=== PATIENT | female | born 1940 | race Caucasian/White ===

== ENCOUNTER → 2017-02-26 | Outpatient (CLI) | payer MEDICARE ==
[~2017-02-26] MED LIST: /PHEN9TA OR; /WARF25TA; /WARF25TA PO; ACET65TA; ALEV220C2 PO; AMLO10TA2 PO; ANEX7.5T PO; ASPI325T OR; BENI20TA11; CALCCHW12; DILA100C OR; DULC100C PO; LISI20TA5 OR; OMEP20TA7 OR; PERC5TAB8; PERC5TAB8 OR; PHEN100C; PHEN10TA; PHEN60TA; PHEN64.8 OR; TYLE325T5 PO; VIT D 2000 OR
--- NOTE | 2017-02-26 13:20 | PFTRPT ---
Site: [facility], [address] [place], [address] ID: [id number] Name: FABIAN PAGE Doctor: Dave BENSON, Celine Tech: Sammy BOWEN RRT Age: 76 Sex: Female Race: Height: 62.00 Inches Weight: 169.00 Lbs BSA: 1.78 Diagnosis: M34.1 test meet the ATS standards for acceptability and repeatability. Pre-Bronch Post-Bronch Pred Actual %Pred Actual %Chng SPIROMETRY FVC (L) 2.57 2.73 106 FEV1 (L) 1.92 2.00 104 FEV1/FVC (%) 75 73 97 FEF 25% (L/sec) 4.41 4.36 98 FEF 50% (L/sec) 3.20 1.87 58 FEF 75% (L/sec) 0.87 0.53 60 FEF 25-75% (L/sec) 1.55 1.45 93 FEF Max (L/sec) 4.95 4.49 90 FIVC (L) 2.24 FIF 50% (L/sec) 3.19 2.95 92 FIF Max (L/sec) 3.03 MVV (L/min) 79 60 75 LUNG VOLUMES SVC (L) 2.56 2.83 110 IC (L) 2.03 2.29 112 ERV (L) 0.53 0.53 100 TGV (L) 2.72 2.95 108 RV (Pleth) (L) 2.19 2.42 110 TLC (Pleth) (L) 4.75 5.24 110 RV/TLC (Pleth) (%) 46 46 100 DIFFUSION DLCOunc (ml/min/mmHg) 19.15 17.32 90 DL/VA (ml/min/mmHg/L) 4.03 3.61 89 VA (L) 4.75 4.79 100 AIRWAYS RESISTANCE Raw (cmH2O/L/s) 1.86 1.13 60 Gaw (L/s/cmH2O) 1.03 0.90 87 sRaw (cmH2O*s) 4.76 3.70 77 sGaw (1/cmH2O*s) 0.20 0.27 135
== END ==
LOC: M CARPUL 12:48
PROVIDERS: ATTEND Internal Medicine Rheumatology
DX: M34.1 CR(E)ST syndrome (principal)

== ENCOUNTER → 2017-05-15 | Outpatient (REF) | payer MEDICARE ==
[~2017-05-15] MED LIST changes: +ALEV220T26 PO; +BAYE325T12 PO; +COUM2.5T17 PO; +PERC5TAB12 PO
[2017-05-15 16:26] LABS: BASO % 0.7 % (0.0-1.0); EOS # 0.1 K/mm3 (0.0-0.50); EOS % 1.5 % (0.0-3.0); LARGE UNSTAINED CELL # 0.1 K/mm3 (0.0-0.4); LARGE UNSTAINED CELL % 1.9 % (0.0-4.0); LYMPH # 1.5 K/mm3 (1.5-4.5); LYMPH % 18.2 % (24.0-44.0); MEAN CORPUSCULAR HEMOGLOBIN 28.2 pg (27.0-33.0); MEAN CORPUSCULAR HGB CONC 32.1 g/dl (32.0-36.5); MEAN CORPUSCULAR VOLUME 87.9 fl (80.0-96.0); MONO # 0.6 K/mm3 (0.0-0.8); MONO % 7.3 % (0.0-5.0); NEUTROPHILS # 5.3 K/mm3 (1.8-7.7); NEUTROPHILS % 70.5 % (36.0-66.0); PLATELET COUNT, AUTOMATED 324 k/mm3 (150-450); RED CELL DISTRIBUTION WIDTH 14.7 % (11.5-14.5); WHITE BLOOD COUNT 7.6 K/mm3 (4.0-10.0)
[2017-05-15 18:20] LABS: ERYTHROCYTE SEDIMENTATION RATE 13 mm/hr (0-30)
== END ==
LOC: M LABDRAW1 10:55
PROVIDERS: ATTEND Orthopaedic Surgery
DX: Z96.652 Presence of left artificial knee joint (principal)

== ENCOUNTER → 2017-05-22 | Outpatient (CLI) | payer MEDICARE ==
--- NOTE | 2017-05-22 11:56 | REP ---
Three-phase bone scan: History: Artificial knee joint, question loosening. Left knee pain for 2 months. The patient is status post left knee replacement 2007, right knee replacement 2006, left hip replacement 2008. Technique: 22.0 mCi technetium 99m MDP is injected and standard three-phase imaging was acquired. Scintigraphic findings: Anterior and posterior flow study shows no abnormality. Blood pool images demonstrate an area of hyperemia over the medial tibial metaphysis on the left. Delayed scan images demonstrate a fairly intense increased uptake in the medial tibial plateau and to a lesser extent the lateral tibial plateau on the left. There is also increased uptake associated with the right knee prosthesis in the proximal tibia along its lateral aspect. These findings suggest the possibility of loosening bilaterally. Normal expected bone prosthetic uptake is seen in the distal femurs on both sides. Impression: Areas of increased uptake focally associated with each knee prosthesis. These involve the medial tibial metaphysis or medial tibial plateau on the left and the lateral aspect of the tibial diaphysis at the distal stem of the right knee prosthesis. These areas are suspicious for loosening. Signed by Vasiliy Leos MD 05/22/2017 04:02 P
== END ==
LOC: M RAD 07:44
PROVIDERS: ATTEND Orthopaedic Surgery
DX: Z96.653 Presence of artificial knee joint, bilateral (principal)
CPT/HCPCS: 78315; A9503

== ENCOUNTER → 2017-07-20 | Outpatient (REF) | payer MEDICARE | LOC: M LAB REF 16:46 | PROVIDERS: ATTEND Family Medicine | DX: L94.0 Localized scleroderma [morphea] (principal) ==

== ENCOUNTER → 2017-08-09 | Outpatient (REF) | payer MEDICARE ==
[2017-08-09 15:07] LABS: ALBUMIN 3.5 GM/DL (3.2-5.2); ALBUMIN/GLOBULIN RATIO 0.88 (1.00-1.93); ALKALINE PHOSPHATASE 145 U/L (45-117); ALT/SGPT 14 U/L (12-78); ANION GAP 5 MEQ/L (8-16); AST/SGOT 16 U/L (15-37); BILIRUBIN,TOTAL 0.3 MG/DL (0.2-1.0); BLOOD UREA NITROGEN 10 MG/DL (7-18); CALCIUM LEVEL 9.6 MG/DL (8.8-10.2); CARBON DIOXIDE LEVEL 30 MEQ/L (21-32); CHLORIDE LEVEL 106 MEQ/L (98-107); CHOLESTEROL LEVEL 204 MG/DL (<200); CREATININE FOR GFR 0.79 MG/DL (0.55-1.02); GLOMERULAR FILTRATION RATE > 60.0 (>39); GLUCOSE, FASTING 90 MG/DL (83-110); POTASSIUM SERUM 4.9 MEQ/L (3.5-5.1); SODIUM LEVEL 141 MEQ/L (136-145); TOTAL PROTEIN 7.5 GM/DL (6.4-8.2); TRIGLYCERIDES LEVEL 149 MG/DL (<150)
== END ==
LOC: M LAB REF 12:45
PROVIDERS: ATTEND Family Medicine
DX: I10 Essential (primary) hypertension (principal); Z79.899 Other long term (current) drug therapy

== ENCOUNTER → 2017-08-15 | Outpatient (CLI) | payer MEDICARE ==
[2017-08-15 11:20] LABS: MEAN CORPUSCULAR HEMOGLOBIN 26.4 pg (27.0-33.0); MEAN CORPUSCULAR VOLUME 85.3 fl (80.0-96.0); RED CELL DISTRIBUTION WIDTH 15.2 % (11.5-14.5); WHITE BLOOD COUNT 7.1 10^3/uL (4.0-10.0)
[2017-08-15 11:29] LABS: INR 1.16
--- NOTE | 2017-08-15 11:40 | REP ---
Chest two views HISTORY: Acid reflux Comparison: 08/14/2012 A minimal increase in interstitial markings is present in the lungs consistent with chronic interstitial change. The heart is normal in size. The pulmonary vasculature is normal in appearance. Degenerative change is present in the thoracic spine. There are old right rib fractures. IMPRESSION: Chronic interstitial change. Signed by Lonny Rossi MD 08/15/2017 11:32 A
[2017-08-15 11:45] LABS: ALBUMIN 3.5 GM/DL (3.2-5.2); ALBUMIN/GLOBULIN RATIO 0.97 (1.00-1.93); ALKALINE PHOSPHATASE 128 U/L (45-117); ALT/SGPT 12 U/L (12-78); ANION GAP 7 MEQ/L (8-16); AST/SGOT 14 U/L (15-37); BILIRUBIN,TOTAL 0.2 MG/DL (0.2-1.0); BLOOD UREA NITROGEN 12 MG/DL (7-18); CARBON DIOXIDE LEVEL 27 MEQ/L (21-32); CHLORIDE LEVEL 104 MEQ/L (98-107); CREATININE FOR GFR 0.63 MG/DL (0.55-1.02); GLOMERULAR FILTRATION RATE > 60.0 (>39); GLUCOSE, FASTING 85 MG/DL (83-110); POTASSIUM SERUM 4.3 MEQ/L (3.5-5.1); SODIUM LEVEL 138 MEQ/L (136-145); TOTAL PROTEIN 7.1 GM/DL (6.4-8.2)
--- NOTE | 2017-08-15 19:43 | ECGEPIP ---
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
== END ==
LOC: M ADMPAT 09:26
PROVIDERS: ATTEND Orthopaedic Surgery
DX: K21.9 Gastro-esophageal reflux disease without esophagitis (principal); Z96.652 Presence of left artificial knee joint

== ENCOUNTER 2017-08-28 05:56 | Inpatient (IN) | payer MEDICARE ==
[2017-08-15 09:43] VITALS: BP 142/80
--- NOTE | 2017-08-23 16:18 | HPE ---
DATE OF ADMISSION: 08/28/2017 CHIEF COMPLAINT: Left knee pain. HISTORY OF PRESENT ILLNESS: This is a pleasant 77-year-old female with progressively worsening left knee pain and stiffness. The patient has failed to improve with conservative treatment. She has elected for surgery for her continued symptoms. She has pain with weightbearing activities and her activities of daily living. X-rays of her knee are notable for advanced osteoarthritis of the left knee joint. She has consented for a left total knee arthroplasty by Dr. Tono Alcala. Medical optimization was performed by Germán Rosado. ALLERGIES: She has no known allergies. CURRENT MEDICATIONS: - omeprazole 40 mg once a day - phenytoin - phenobarbital 32.4 - aspirin 325 mg - Norvasc 2.5 mg - Actistatin - vitamin D3 - amlodipine 10 mg by mouth - omega-3 - Aleve PAST MEDICAL HISTORY: Includes: 1. History of seizures. 2. Hypertension. PAST SURGICAL HISTORY: 1. Right knee replacement. 2. Left knee replacement. 3. Right and left arm open reduction internal fixations (ORIFs). 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 Does not smoke or drink. FAMILY HISTORY: Noncontributory. REVIEW OF SYSTEMS: This patient denies chest pain, heart palpitations, cough, wheezing, difficulty breathing or shortness of breath. She denies abdominal pain, nausea, vomiting, diarrhea or constipation. She denies recent upper respiratory infection or urinary tract infection symptoms. She does complain of persistent pain in the left knee and pain with weightbearing activities in the left knee. PHYSICAL EXAMINATION: GENERAL: She is a well-nourished, well-developed, in no acute distress, alert female patient. She ambulates with a moderate limp favoring her left lower extremity. She is not using assistive devices. VITAL SIGNS: She is 62 inches tall, weighs 151 pounds with a temperature of 98.2, pulse of 74, respirations of 16, blood pressure 140/80. Neck was supple without adenopathy or jugular venous distension. Lungs were clear to auscultation without rales or wheeze. HEART: Regular rate and rhythm. ABDOMEN: Bowel sounds were present. EXTREMITIES: Examination of the knee revealed well-healed surgical scarring, otherwise the skin was intact. She is tender to palpation. She has decreased range of motion secondary to pain and stiffness. The limb is neurovascularly intact. LABORATORY DATA: Chest x-ray showed chronic interstitial change. EKG showed sinus rhythm at 60 beats per minute with a left bundle-branch block. Glucose 85, BUN 18, creatinine 0.63, sodium 138, potassium 4.3. Prothrombin time 15, INR 1.16. UA showed cloudy appearance, 3+ leukocyte esterase, 1+ blood, too numerous to count white blood cells, 12 red blood cells, 3+ bacteria, otherwise within normal limits with a specific gravity of 1.012. CBC showed hemoglobin of 11.9, MCH of 26.4, MCHC of 31, RDW of 15.2, otherwise within normal limits. Sedimentation rate was 17. Urine culture showed greater than 100,000 units of Klebsiella pneumoniae and nasal and sinus culture showed normal dhaval present. 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 PLAN: The plan is for Tamiko to finish her antibiotics prior to her surgery. She has been placed on nitrofurantoin. Otherwise, she has consented for a left total knee arthroplasty by Dr. Tono Cummings.
--- NOTE | 2017-08-27 16:19 | CR ---
DATE OF CONSULTATION: 08/20/2017 PREOPERATIVE EVALUATION AND CONSULTATION: CONSULTING PHYSICIAN: Germán Rosado MD CONSULTATION REPORT FOR: Tono Cummings MD PLANNED PROCEDURE: Left knee revision to be completed at [facility]. CHIEF COMPLAINT: Preoperative evaluation and consultation. HISTORY OF PRESENT ILLNESS: This is a very pleasant 77-year-old, admit once prior having been seen by Dr. Delgado, who now presents for preoperative evaluation and consultation for planned revision of left knee arthroplasty, after having the original completed in 2007. As noted, the patient also sees rheumatology for a calcinosis, Raynaud phenomenon, esophageal dysmotility, sclerodactyly, and telangiectasia (CREST) syndrome and did have preoperative laboratories which did show a urinary tract infection (UTI) which I am treating with Macrobid if not treated by orthopedics. Otherwise, she has a known left bundle branch block but did have a nuclear stress test completed in [address] Ravi that did not show any significant issues. She does follow with Dr. Plata. Gastroesophageal reflux disease (GERD) symptoms are controlled on omeprazole. She has severe Raynaud's for which she is on amlodipine. She has a history of seizures and is on phenobarbital and dilantin. She notes she has not had a seizure in a number of years. She denies any lary chest pain, shortness of breath, or any issues with anesthesia in the past. Due to her CREST syndrome, not only does she have Raynaud's but she had an esophageal stricture for which a balloon dilatation was completed. 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 Aside from what was mentioned, no other new issues or concerns or problems at this point. PAST MEDICAL HISTORY: 1. Calcinosis, Raynaud phenomenon, esophageal dysmotility, sclerodactyly, and telangiectasia (CREST) syndrome. 2. Seizure disorder. 3. Left bundle branch block, prior stress test 02/03/2015 did not show significant abnormality and it showed an ejection fraction (EF) of 50% to 55%, follows with Dr. Plata. 4. Osteoarthritis of a number joints, especially the left knee, follows with [facility]. PAST SURGICAL HISTORY: 1. Tonsils removed as a child. 2. Left elbow fracture at age 9, repaired. 3. Fracture of the left arm in the late 1980s. 4. Kicked by a cow in January of 2011, suffered a broken arm, broken elbow at the time, repaired by the [facility]. 5. Left total hip replacement in 2008. 6. Left total knee replacement in 2007. 7. Right total knee replacement in 2006. 8. December 2010 repair of a rectal prolapse. ALLERGIES: ANGIOTENSIN-CONVERTING ENZYME (FAIZA) INHIBITORS cause significant hyperkalemia. MEDICATIONS: - amlodipine 10 mg by mouth daily - omeprazole 40 mg daily - phenobarbital 30 mg by mouth daily - dilantin 100 mg tablet three tablets at bedtime - antibiotic to be started if not already by [facility], put on Macrobid SOCIAL HISTORY: The patient has been a since 2008. 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 She lives with her daughter Kim. She is a former smoker for a short time after her teens and then quit. She denies any alcohol use. She is quite active on the farm. FAMILY HISTORY: The patient has two brothers as well as a daughter, Kim, who lives with her, who has the calcinosis, Raynaud phenomenon, esophageal dysmotility, sclerodactyly, and telangiectasia (CREST) syndrome as does the patient. She notes her father of chronic obstructive pulmonary disease (COPD) and her mother of complications of high blood pressure. REVIEW OF SYSTEMS: As per the history of present illness (HPI). Otherwise, 10-system review is completely negative. PHYSICAL EXAMINATION: VITAL SIGNS: Blood pressure 130/70, pulse 82. Height is 5 feet, 3 inches. Weight of 158 pounds. Body mass index (BMI) of 28. GENERAL: The patient appears in no acute distress, nontoxic, alert and oriented times three. She is quite pleasant. She does have features consistent with calcinosis, Raynaud phenomenon, esophageal dysmotility, sclerodactyly, and telangiectasia (CREST) syndrome. HEENT: Normocephalic, atraumatic. Pupils are equal, round, and reactive to light and accommodation. Extraocular motions intact. No lesions of the lid or conjunctiva. Oral cavity, oropharynx benign. NECK: Neck is supple. NO lymphadenopathy or thyromegaly. HEART: Regular rate and rhythm, S1, S2. No murmurs appreciated. LUNGS: Clear to auscultation bilaterally. No rales, rhonchi or wheezes. ABDOMEN: Soft, nontender, nondistended. EXTREMITIES: No clubbing, cyanosis or edema at this point. Good capillary refill. She does have stigmata of sclerodactyly of the hands with some scars from sever Raynaud's at the tips of her fingers. NEUROLOGY EXAMINATION: Nonfocal. Gait is normal. PREOPERATIVE LABORATORY DATA: Shows a nasal and sinus culture with normal dhaval. A normal CBC and sedimentation rate except for an elevated RDW of 15.2. Chest x-ray shows some minimal increased interstitial markings and old rib fractures which are all chronic. EKG shows a left bundle branch block which is similar to a tracing in 2012. ASSESSMENT AND PLAN: 1. Preoperative evaluation and consultation. At this point in time, the patient denies any new cardiac, pulmonary or anesthesia risks. She denies risks of obstructive sleep apnea (LUCILA). She does, however, have calcinosis, Raynaud phenomenon, esophageal dysmotility, sclerodactyly, and telangiectasia (CREST) syndrome that should be taken into consideration perioperatively as well as a known left bundle branch block. Other medical issues appear to be stable and she does look forward to surgical intervention. 2. Left knee pain. The patient looks forward to revision of her total knee replacement. She is aware of the risks and plans for rehabilitation after the event. 3. Hypertension. Good results with diet alone. She is on amlodipine as well. However, this apparently was for her Raynaud's but we will continue to monitor. 4. Esophageal obstruction. No recent issues. She had dilatation in the past by gastroenterology (GI). We will monitor. 5. Seizure disorder. Stable on present medication. We will monitor. 6. CREST syndrome. Again, the patient's syndrome includes multiple components including the sclerodactyly, esophageal obstruction, and significant Raynaud's phenomena. The Raynaud's is being treated with amlodipine but should be monitored perioperatively. 7. Rectal prolapse. Although repaired previously, this is problematic and may need attention during her hospitalization. 8. Chronic venous hypertension/varicose veins. This appears to be stable. 9. Left bundle branch block. Again, appears to be stable. 10. Ongoing care. At this point in time, the patient will be treated with Macrobid for positive urine culture. She is scheduled to see me in January 2018 for followup. She again is of intermediate risk for an intermediate risk procedure but overall appears to be stable and ready for surgery. If there is any other assistance that I can provide, please call me at [phone].
[2017-08-28] VITALS (8 sets, daily range): BP systolic 116–149; BP diastolic 58–85; O2SAT 95
[~2017-08-28] VITALS: Ht 160 cm; Wt 39.8 kg
[~2017-08-28 05:56] MED LIST changes: -COUM2.5T17 PO; -PERC5TAB12 PO
[2017-08-28] MEDS ORDERED: ACETAMINOPHEN 500 MG TAB PO ONE (06:15)
[2017-08-28] MEDS ORDERED: LR 1,000 ML IV SCH ×2 (06:15→11:00)
[2017-08-28] MEDS ORDERED: MIDAZOLAM INJ 2 MG/2 ML VIAL (J2250) As Ordered ONE ×2 (06:32→08:20)
[2017-08-28] MEDS ORDERED: fentaNYL 100 MCG/2 ML INJECTION (J3010) As Ordered ONE ×2 (06:32→08:20)
[2017-08-28] MEDS ORDERED: EPINEPHrine INJ 1 MG/ML 1ML AMP As Ordered ONE (07:17)
[2017-08-28] MEDS ORDERED: ceFAZolin 1GM INJ (J0690) As Ordered ONE (07:17)
[2017-08-28] MEDS ORDERED: BUPIVACAINE LIPOSOME/PF 1.3% 20 ML VIAL (13.3MG/ML)(EXPAREL) As Ordered ONE (07:17)
[2017-08-28] MEDS ORDERED: TRANEXAMIC ACID 100 MG/ML 10ML VIAL As Ordered ONE (07:17)
[2017-08-28] MEDS ORDERED: fentaNYL 100 MCG/2 ML INJECTION (J3010) IV PRN ×2 (07:45→11:00)
[2017-08-28] MEDS ORDERED: MIDAZOLAM INJ 2 MG/2 ML VIAL (J2250) IV PRN (07:45)
[2017-08-28] MEDS ORDERED: PROPOFOL 200 MG/20 ML VIAL As Ordered ONE (08:20)
[2017-08-28] MEDS ORDERED: ONDANSETRON 4MG/2ML VIAL (J2405) As Ordered ONE (08:25)
[2017-08-28] MEDS ORDERED: KETAMINE HCL 200 MG/20 ML VIAL As Ordered ONE ×2 (09:36→09:56)
[2017-08-28] MEDS ORDERED: HYDROmorphone HCL 2 MG/ML 1ML VIAL (J1170) As Ordered ONE (09:51)
[2017-08-28] MEDS ORDERED: dexameTHASONE 4 MG/ML 1ML VIAL (J1100) As Ordered ONE (09:53)
[2017-08-28] MEDS ORDERED: MORPHINE 1MG/ML IN 0.9% NACL 100ML IV BAG As Ordered ONE (09:58)
[2017-08-28] MEDS ORDERED: ACETAMINOPHEN TAB 650MG DOSE (2X325MG) PO PRN (11:00)
[2017-08-28] MEDS ORDERED: NALOXONE INJ 0.4 MG/1 ML VIAL (J2310) IV PRN (11:00)
[2017-08-28] MEDS ORDERED: EPIDURAL/PCA KEYS XX PRN (11:00)
[2017-08-28] MEDS ORDERED: diphenhydrAMINE INJ 50MG/ML VIAL (J1200) IV PRN (11:00)
[2017-08-28] MEDS ORDERED: ONDANSETRON 4MG/2ML VIAL (J2405) IV PRN ×2 (11:00)
[2017-08-28] MEDS ORDERED: NALBUPHINE HCL 10 MG/ML AMP (J2300) IV PRN (11:00)
[2017-08-28] MEDS ORDERED: FLEET ENEMA PR PRN (11:00)
[2017-08-28] MEDS ORDERED: MORPHINE 1MG/ML IN 0.9% NACL 100ML IV BAG IV PRN (11:00)
--- NOTE | 2017-08-28 11:08 | RO ---
DATE OF OPERATION: 08/28/2017 PREOPERATIVE DIAGNOSIS: Failed left total knee replacement. POSTOPERATIVE DIAGNOSIS: Failed left total knee replacement. PROCEDURE: Revision of the left total knee arthroplasty, a tibial and polyethylene component using a size 42 sleeve with a 75 stem and a size 3 tray with a 12.5 rotating platform polyethylene insert. The prosthesis was made by [employer]. SURGEON: Rosendo Cummings MD ATTRACTIONS ASSOCIATE: Jesus Manuel Manzano MD, and CASSANDRA Bettencourt ANESTHESIA: COMPLICATIONS: None. ESTIMATED BLOOD LOSS: Less than 20 mL. SPECIMENS: None. FINDINGS: She had gross loosening of the tibial component. There was polyethylene synovitis. No purulence or any signs of infection were noted. There was a significant amount of bone loss medially. DESCRIPTION OF PROCEDURE: Antibiotics were given intravenously preoperatively and a successful left femoral nerve block and spinal anesthetic was induced. The tourniquet was placed on the left upper thigh and not inflated. The left lower extremity was carefully prepped and draped in the usual sterile fashion. Then, after appropriate time-out, the leg was elevated, the tourniquet was inflated to 250 mmHg for about 90 minutes. Examination under anesthesia revealed gross laxity in the mediolateral plane. She had full flexion and extension ability, however. The previous incision was marked and then utilized for the skin incision. Bovie cautery was used to coagulate the crossing vessels, reestablish the soft tissues planes appropriately, then performed a medial parapatellar arthrotomy. There was a large yellowish effusion, but it appeared to be normal joint fluid, and there was some synovitis within the joint noted. We performed a synovectomy with a suprapatellar pouch and the medial and lateral gutters. Then, we released around the proximal medial portion of the tibia. It was noteworthy that the tibial tray was grossly loose. We were actually able to radha the patella nicely and flex the knee and then distract the tibia anterior, and the polyethylene and the tibial tray were removed without difficulty. We meticulously worked on removing the cement from within the intramedullary canal of the tibia, as well as off the surface of the tibia medially and laterally using small curved osteotomes and Cloward rongeurs and curettes. Medially, it was noteworthy that there appeared to be some necrosis of the bone, but we were able to use a curette to remove any necrotic debris. Again, no gross signs of purulence or infection was noted. Once we were satisfied that we had meticulously removed all the excess debris, necrotic material, synovitis, and bone cement, we had excellent visualization of the entire tibial plateau. It is noteworthy that the fracture deformity forced the intramedullary canal to be relatively medialized compared to normal; and thus, we had to make sure that we removed some of the firm cortical bone off the medial aspect of the proximal tibia as we began finding the center of the canal. The canal-finding reamer was utilized to find the center of the tibial canal, and then we began broaching, first with a 29, then the 37, and then the 42 broach, taking great care to be sure that we were level-lined with the intramedullary canal such that we appear to be aligned parallel with the mechanical axis of the tibia. Once that was seated, it was noteworthy that there was no bone for a true cleanup cut. The anterior portion of the tibia was still present, which gave us a reference point for the normal [place]am[place] joint line, and our broach fit down such that it lined perfectly with the anterior aspect of the tibia; thus, a trial #3 plate was placed, followed by first the 12.5 rotating platform posterior stabilized insert; and this brought the knee out to a nice extension with excellent stability to varus and valgus stress testing, but I felt we needed a little bit more stability; thus, we trialed the 12.5, and it fit very nicely. I was very pleased with the stability of the construct, and patellofemoral tracking was anatomic. Thus, likely, we felt this would be the appropriate size components to use. Thus, I removed all the trials at this point, and then we copiously pulsatile lavage irrigated out the tibial plateau and intramedullary canal and removed all excess debris, as Mrs. Geraldine Manzano mixed the cement on the back table. Dr. Manzano helped with the synovectomy, helped with the appropriate soft tissue retraction, helped with the debridement of the bony surfaces, helped with the incision making intraoperatively, amongst many other tasks, as did Mrs. Geraldine Manzano. The real size #3 tibial tray with a 75 stem was placed on the implant, and the metaphyseal sleeve was opened; and then, once the cement was in a nice doughy stage, we applied it to the tibial tray under surface. We then placed the sleeve by hand into the appropriate position and then placed the stem down the middle of the sleeve and then impacted it down to a good stable position, taking great care to make sure that the bone cement would not extrude throughout the soft tissues. We did do this when the cement was basically in a doughy stage. There was a significant gap, bone defect medially that was filled with the bone cement. We held this position until the cement hardened. We copiously irrigated out as we were waiting for the cement to harden, and then we trialed with the 12.5 polyethylene once again; and this brought her into good extension, and I felt she was stable enough that this was the appropriate sized polyethylene to use. Basically, we brought her back to where she was when she initially had her knee replacement placed. Thus, the real 12.5 was then placed after irrigating once again. Then, we brought the knee into full extension, irrigated out the knee again with a copious amount of pulsatile lavage irrigant solution. As we were waiting for the cement to harden, I used Exparel in the periosteum of the femur medially and laterally, as well as the joint capsule and the medial and lateral aspect of the tibia. We then began closing the arthrotomy with two #1 polydioxanone suture (PDS) apex sutures, then one medial parapatellar suture, then a running #1 double-arm Stratafix was used to close the capsule. We let the tourniquet down at this point, irrigated again, and closed the deep subdermal tissues with interrupted #2-0 PDS sutures. The skin was closed with traci, covered by Adaptic dry sterile bulky dressing. She was then transferred to the recovery room in stable condition. There were no intraoperative complications.
[2017-08-28] MEDS: LR 1,000 ML IV SCH ×2 (13:12→23:30)
--- NOTE | 2017-08-28 15:27 | IPN ---
DATE: 08/28/2017 Ms. Dixon is somewhat tired. Pain is controlled postoperatively as she is seen in the recovery area. No complaints of chest pain. No shortness of breath. Temperature is 97.3, pulse 69, respiratory rate 18, blood pressure 147/82, 95% on 2 liters. Awake, appropriately interactive. Breathing is symmetrical. I:E ratio is 1:3. No wheezes, rales or rhonchi. Heart is distant sounding. Normal S1, S2. Abdomen is notable for hypoactive bowel sounds. White cell count 7.1 on the 11th, hemoglobin 11.9 on the 11th. Creatinine 0.63. ASSESSMENT: This is a 77-year-old postoperative day #0 for a left knee revision. PLAN: 1. Orthopedics. Pain management, deep vein thrombosis (DVT) prophylaxis, activity, discharge per orthopedics. 2. The patient has a history of seizure disorder. Continue dilantin and phenobarbital. We will check levels tomorrow. 3. The patient has left bundle branch block and prior stress test. Ejection fraction of 50 to 65%. No complaints of chest pain or shortness of breath. 4. The patient has Raynaud's phenomenon and esophageal dysmotility, calcinosis, sclerodactyly and telangiectasia crest syndrome, also rheumatoid arthritis. 5. The patient has a history of hypertension, which is diet controlled with Norvasc for Raynaud's phenomenon. 6. The patient has history of esophageal obstruction, status post diltation. 7. The patient has a history of rectal prolapse. Bowel regimen per orthopedics. 8. The patient has had a recent urinary tract infection (UTI), for which she received Macrobid.
[2017-08-28] MEDS ORDERED: WARFARIN SOD 5 MG TAB PO ONE (17:00)
[2017-08-28] MEDS: PHENYTOIN ER 100 MG CAP PO SCH (20:40)
[2017-08-28] MEDS: PHENobarbital 30 MG TAB PO SCH (20:40)
[2017-08-29 01:30] VITALS: BP 137/62
[2017-08-29 06:00] VITALS: BP 136/62
[2017-08-29 06:59] LABS: MEAN CORPUSCULAR HEMOGLOBIN 26.4 pg (27.0-33.0); MEAN CORPUSCULAR HGB CONC 30.9 g/dl (32.0-36.5); MEAN CORPUSCULAR VOLUME 85.3 fl (80.0-96.0); PLATELET COUNT, AUTOMATED 253 10^3/uL (150-450); WHITE BLOOD COUNT 9.5 10^3/uL (4.0-10.0)
[2017-08-29] MEDS ORDERED: PERCOCET 5MG/325MG TAB PO PRN (07:00)
[2017-08-29] MEDS ORDERED: ONDANSETRON 4 MG TAB (S0181) PO PRN (07:00)
[2017-08-29 07:10] LABS: INR 1.71
[2017-08-29 07:22] LABS: ANION GAP 6 MEQ/L (8-16); BLOOD UREA NITROGEN 9 MG/DL (7-18); CALCIUM LEVEL 8.6 MG/DL (8.8-10.2); CARBON DIOXIDE LEVEL 29 MEQ/L (21-32); CHLORIDE LEVEL 102 MEQ/L (98-107); CREATININE FOR GFR 0.63 MG/DL (0.55-1.02); GLOMERULAR FILTRATION RATE > 60.0 (>39); GLUCOSE, FASTING 103 MG/DL (83-110); PHENOBARBITAL LEVEL 18.7 UG/ML (15.0-40.0); POTASSIUM SERUM 4.1 MEQ/L (3.5-5.1); SODIUM LEVEL 137 MEQ/L (136-145)
[2017-08-29] MEDS: MOM 30ML SUSPENSION UDC PO SCH (10:28)
[2017-08-29] MEDS: MIRALAX *UNIT DOSE* 17GM PACKET PO SCH (10:28)
[2017-08-29] MEDS: PHENYTOIN ER 100 MG CAP PO SCH ×2 (10:29→20:37)
[2017-08-29] MEDS: PHENobarbital 30 MG TAB PO SCH ×2 (10:29→20:37)
[2017-08-29] MEDS: SENOKOT S TAB PO SCH ×2 (10:30→20:38)
[2017-08-29] MEDS: PERCOCET 5MG/325MG TAB PO PRN ×3 (10:30→20:38)
[2017-08-29] MEDS ORDERED: LIDOCAINE 1% MDV 20ML VIAL ONE (14:57)
[2017-08-29] MEDS ORDERED: ROPIvacaine 0.5% 30 ML INJECTION (J2795) ONE (14:57)
[2017-08-29] MEDS ORDERED: EPINEPHrine INJ 1 MG/ML 1ML AMP ONE (14:57)
--- NOTE | 2017-08-29 15:17 | REP ---
Left knee series: Two views. History: Recheck placement. Comparison study is from January 08, 2011. Findings: Frontal and lateral views of the left knee demonstrate left knee arthroplasty components in good position. The tibial component of the arthroplasty has been replaced since the 2010 study and is seen in good position. Anterior skin traci are seen. Perioperative subcutaneous swelling and emphysema is noted. Old post-traumatic changes are seen in the proximal tibia and proximal fibula. Signed by Vasiliy Leos MD 08/29/2017 03:19 P
[2017-08-29] MEDS ORDERED: WARFARIN SOD 2.5 MG TAB PO ONE (17:00)
[2017-08-29] MEDS ORDERED: WARFARIN SOD 5 MG TAB PO ONE (17:00)
[2017-08-29 20:00] VITALS: O2SAT 94
--- NOTE | 2017-08-29 20:21 | IPN ---
DATE: 08/29/2017 The patient is feeling well today. There are no complaints of pain. Temperature 98.1, pulse 75, respiratory rate 18, blood pressure 136/62. 97% on 2 liters. Intake and output (I and Os) notable for a positive fluid balance of 2 liters. No bowel movements noted. She is awake, appropriately interactive. Pleasantly conversant. Making jokes. Mucous membranes moist. Neck is supple. Breathing is symmetrical and rested. Heart is in regular rate and rhythm. White cell count 9.5, hemoglobin 9.9, platelets 253, BUN 9, creatinine 0.6. INR is 1.7. Dilantin level is 1.5. Phenobarbital level is 18.7. ASSESSMENT: This is a 77-year-old postoperative day #1 for left knee revision. PLAN: 1. Orthopedic: The case discussed with the orthopedic team. Pain management, deep venous thrombosis (DVT) prophylaxis, activity, GI regimen and discharge per orthopedics. 2. The patient has history of seizure disorder. Dilantin level is somewhat low, but the patient is not suffering from frequent seizures. Will monitor her clinically. 3. The patient has left bundle branch block and prior stress test. Ejection fraction 55 to 60%. No signs or symptoms of decompensated heart failure. No chest pain or shortness of breath. 4. 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 5. The patient has history of hypertension, which is diet controlled. 6. The patient has history of rectal prolapse, only to monitor her for bowel function. 7. The patient has recent urinary tract infection (UTI), which she received Macrobid to treat.
[2017-08-29 22:00] VITALS: BP 148/82
[2017-08-30] MEDS: PERCOCET 5MG/325MG TAB PO PRN ×3 (00:54→11:32)
[2017-08-30 06:00] VITALS: BP 154/77
[2017-08-30 07:03] LABS: MEAN CORPUSCULAR HEMOGLOBIN 26.4 pg (27.0-33.0); MEAN CORPUSCULAR HGB CONC 31.4 g/dl (32.0-36.5); MEAN CORPUSCULAR VOLUME 84.3 fl (80.0-96.0); PLATELET COUNT, AUTOMATED 277 10^3/uL (150-450); WHITE BLOOD COUNT 7.9 10^3/uL (4.0-10.0)
[2017-08-30 07:14] LABS: INR 3.63
[2017-08-30 07:18] LABS: ANION GAP 5 MEQ/L (8-16); BLOOD UREA NITROGEN 7 MG/DL (7-18); CALCIUM LEVEL 8.8 MG/DL (8.8-10.2); CARBON DIOXIDE LEVEL 31 MEQ/L (21-32); CHLORIDE LEVEL 102 MEQ/L (98-107); CREATININE FOR GFR 0.64 MG/DL (0.55-1.02); GLOMERULAR FILTRATION RATE > 60.0 (>39); GLUCOSE, FASTING 86 MG/DL (83-110); SODIUM LEVEL 138 MEQ/L (136-145)
[2017-08-30] MEDS: SENOKOT S TAB PO SCH (08:34)
[2017-08-30] MEDS: PHENYTOIN ER 100 MG CAP PO SCH (08:35)
[2017-08-30] MEDS: MOM 30ML SUSPENSION UDC PO SCH (08:35)
[2017-08-30] MEDS: PHENobarbital 30 MG TAB PO SCH (08:35)
[2017-08-30] MEDS: MIRALAX *UNIT DOSE* 17GM PACKET PO SCH (08:35)
[2017-08-30] MEDS ORDERED: PERC5TAB12 PO (10:00)
[2017-08-30] MEDS ORDERED: COUM2.5T17 PO (10:00)
[2017-08-30] MEDS ORDERED: PHYTONADIONE 1.25 MG 1/4 TAB PO ONE (10:00)
--- NOTE | 2017-08-31 05:55 | IPN ---
DATE: 08/30/2017 SUBJECTIVE: Ms. Dixon is feeling well today. She has no complaints of pain, chest pain, shortness of breath. She is looking forward to getting out of the hospital and tolerating diet. OBJECTIVE: VITAL SIGNS: Temperature 98.8, pulse 77, respiratory rate 18, blood pressure 154/77, 96% on room air. INTAKE AND OUTPUT: Notable for a positive fluid balance of 710. LUNGS: Breathing is symmetrical, rested. HEENT: Mucous membranes moist. NECK: Supple. HEART: Distant sounding. ABDOMEN: Soft, doughy, nontender. LABORATORY DATA: White cell count 7.9, hemoglobin 10.6, platelets 277. BUN seven, creatinine 0.6. ASSESSMENT: This is a 77-year-old postoperative day two for left knee revision. PLAN: 1. Orthopedic: The plan is for discharge by the orthopedic team today. Deep venous thrombosis (DVT) prophylaxis per their direction. 2. The patient has a history of seizure disorder. Will discharge on home medications. 3. The patient has a history of left bundle branch block. 4. The patient has Raynaud's phenomenon and esophageal dysmotility in the form of CREST. 5. Recommend the patient followup with Dr. Rosado.
--- NOTE | 2017-09-05 15:13 | DSES ---
DATE OF ADMISSION: 08/28/2017 DATE OF DISCHARGE: 08/30/2017 ATTENDING PHYSICIAN: Dr. Tono Cummings ADMISSION DIAGNOSIS: Failed left total knee arthroplasty. OTHER DIAGNOSES: 1. Raynaud's phenomenon. 2. 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 3. History of seizure disorder. 4. Left bundle branch block. 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 OPERATION PERFORMED: Left total knee arthroplasty revision. HISTORY: This is a pleasant 77-year-old female patient who developed pain in her total knee arthroplasty. Studies and workup was noted for a failed total knee arthroplasty and she was admitted for elective revision of her left total knee that had failed. HOSPITAL COURSE: The patient was admitted on the day of surgery and underwent a revision total knee arthroplasty on the left side. It was without difficulties or complications. She did well in the postoperative period and her hospital stay was without complications. She was up with physical therapy. On the day of discharge, she was doing well, weightbearing as tolerated on her left lower extremity. She will move her left knee to prevent stiffness. She will use adjusted-dose Coumadin and thromboembolic-deterrent (JEANNETTE) stockings for 30 days postoperatively for deep vein thrombosis (DVT) prophylaxis. She will resume her preoperative medications and diet. She will use oral pain medications for pain control. She will followup in our office in 10-14 days for surgical followup. Please refer to the medical record for further detail.
== END 2017-08-30 16:12 | disposition home health service (06) | DRG 470 ==
LOC: M OR 05:56 → M MS5PR 11:40 → UNDODISIN 08-30 14:25
PROVIDERS: ADMIT Orthopaedic Surgery; ATTEND Orthopaedic Surgery
PROC: 0SRD0J9 Replacement of Left Knee Joint with Synthetic Substitute, Cemented, Open Approach (ICD-10-PCS; principal; 2017-08-28 07:30)
DX: T84.033A Mechanical loosening of internal left knee prosthetic joint, initial encounter (principal); G40.509 Epileptic seizures related to external causes, not intractable, without status epilepticus; M34.1 CR(E)ST syndrome; Z79.899 Other long term (current) drug therapy; Z79.82 Long term (current) use of aspirin; I10 Essential (primary) hypertension; Z96.651 Presence of right artificial knee joint; Z96.652 Presence of left artificial knee joint; Y83.1 Surgical operation with implant of artificial internal device as the cause of abnormal reaction of the patient, or of later complication, without mention of misadventure at the time of the procedure

== ENCOUNTER 2017-09-29 14:56 | Emergency (ER) | payer MEDICARE ==
[~2017-09-29] VITALS: Ht 160 cm; Wt 67.3 kg
[~2017-09-29 14:56] MED LIST changes: +COUM2.5T17 PO; +PERC5TAB12 PO
[2017-09-29 15:36] LABS: BASO % 0.3 % (0.0-1.0); EOS # 0.2 10^3/uL (0.0-0.50); EOS % 1.6 % (0.0-3.0); IMMATURE GRANULOCYTE % 0.3 % (0-0); LYMPH # 1.1 10^3/uL (1.5-4.5); LYMPH % 10.5 % (24.0-44.0); MEAN CORPUSCULAR HEMOGLOBIN 26.9 pg (27.0-33.0); MONO # 0.6 10^3/uL (0.0-0.8); MONO % 5.8 % (0.0-5.0); NEUTROPHILS # 8.5 10^3/uL (1.8-7.7); NEUTROPHILS % 81.5 % (36.0-66.0); PLATELET COUNT, AUTOMATED 329 10^3/uL (150-450); RED CELL DISTRIBUTION WIDTH 16.8 % (11.5-14.5); WHITE BLOOD COUNT 10.4 10^3/uL (4.0-10.0)
[2017-09-29] MEDS ORDERED: NITROGLYCERIN 0.4 MG SUBL TABLET SL PRN (15:45)
[2017-09-29] MEDS ORDERED: ASPIRIN 81 MG CHEW TABLET PO ONE (15:45)
[2017-09-29] MEDS ORDERED: ISOVUE-370 76% 100ML VIAL (Q9967) As Ordered ONE (15:52)
[2017-09-29 15:58] LABS: ALBUMIN 3.5 GM/DL (3.2-5.2); ALKALINE PHOSPHATASE 171 U/L (45-117); ALT/SGPT 32 U/L (12-78); ANION GAP 8 MEQ/L (8-16); AST/SGOT 37 U/L (7-37); BILIRUBIN,DIRECT < 0.1 MG/DL (0.0-0.2); BILIRUBIN,TOTAL 0.3 MG/DL (0.2-1.0); BLOOD UREA NITROGEN 8 MG/DL (7-18); CALCIUM LEVEL 9.8 MG/DL (8.8-10.2); CARBON DIOXIDE LEVEL 27 MEQ/L (21-32); CHLORIDE LEVEL 100 MEQ/L (98-107); CREATININE FOR GFR 0.76 MG/DL (0.55-1.02); FREE T4 1.17 NG/DL (0.76-1.46); GLOMERULAR FILTRATION RATE > 60.0 (>39); GLUCOSE, FASTING 113 MG/DL (83-110); PHENOBARBITAL LEVEL 24.2 UG/ML (15.0-40.0); POTASSIUM SERUM 3.6 MEQ/L (3.5-5.1); SODIUM LEVEL 135 MEQ/L (136-145); TOTAL PROTEIN 8.5 GM/DL (6.4-8.2)
--- NOTE | 2017-09-29 16:22 | REP ---
Clinical: Chest pain . Comparison: 08/15/2017 . Findings: The mediastinum and cardiac silhouette are stable and within normal limits for portable technique. The lung chase are clear without acute consolidation, effusion, or pneumothorax. Skeletal structures demonstrate old healed right rib fractures. Impression: No acute cardiopulmonary process appreciated. Signed by Edmundo Hopkins MD 09/29/2017 04:14 P
--- NOTE | 2017-09-29 16:44 | REP ---
Clinical: Acute chest pain. Rule out dissection. Technique: Axial contrast enhanced images from the thoracic inlet to the upper abdomen using 100 ml Isovue 370 intravenous contrast material with imaging obtained in the arterial phase of enhancement. Coronal and sagittal MIP re-formations are obtained. Comparison: None. Findings: Moderate atherosclerotic changes to the thoracic aorta appreciated without evidence for aneurysm or dissection. Heart demonstrates atherosclerotic changes to the coronary arteries without cardiomegaly or pericardial effusion. The bilateral lung chase demonstrate chronic interstitial changes without acute consolidation, significant nodule or mass lesion. Tracheobronchial tree is patent. No significant adenopathy. Surrounding musculoskeletal structures are intact and normal for age. There is a large hiatal hernia and there is associated moderate distension to the esophagus with considerable intraluminal debris to the level of the diaphragm. There is a history of gastroesophageal reflux disease. Impression: 1. Atherosclerotic changes to the aorta without evidence for aneurysm or dissection. 2. Large hiatal hernia and moderate distension of the esophagus with intraluminal debris. Signed by Edmundo Hopkins MD 09/29/2017 04:34 P
[2017-09-29] MEDS ORDERED: METOPROLOL 5 MG/5 ML VIAL IV STA (16:52)
[2017-09-29 17:14] VITALS: BP 144/78
[2017-09-29] MEDS ORDERED: NS 1,000 ML IV SCH (17:30)
[2017-09-29 17:52] VITALS: BP 147/79
--- NOTE | 2017-10-01 08:33 | ECGEPIP ---
Stationary ECG Study [facility] - ED Test Date: 2017-09-29 Pat Name: FABIAN PAGE Department: Room: - Gender: F Manager Public: zaida : 1940 Requested By: Shirley Viveros Order Number: [id number] Reading MD: Jose Daniel Cervantes Measurements Intervals [place] Rate: 84 P: 52 MT: 155 QRS: 33 QRSD: 158 T: 114 QT: 378 QTc: 447 Interpretive Statements SINUS RHYTHM LEFT BUNDLE BRANCH BLOCK ST ELEVATION, CONSIDER INFERIOR INJURY ACUTE [place] Electronically Signed On 10-01-2017 8:33:18 EST by Jose Daniel Cervantes
== END 2017-09-29 17:54 | disposition short-term general hospital (02) ==
LOC: M ED 14:56
DX: I21.3 ST elevation (STEMI) myocardial infarction of unspecified site (principal); I10 Essential (primary) hypertension; I44.7 Left bundle-branch block, unspecified; M34.9 Systemic sclerosis, unspecified; G40.909 Epilepsy, unspecified, not intractable, without status epilepticus; Z79.01 Long term (current) use of anticoagulants; Z79.899 Other long term (current) drug therapy; Z96.652 Presence of left artificial knee joint
CPT/HCPCS: 71010; 71275; 80048; 80076; 80184; 80185; 82550; 82553; 83690; 83880; 84439; 84443; 84484; 85025; 85610; 85730; 93005; 93041; 94760; 96374; 99291; Q9967

== ENCOUNTER 2017-10-03 14:41 | Emergency (ER) | payer MEDICARE ==
[~2017-10-03] VITALS: Ht 160 cm; Wt 65.9 kg
--- NOTE | 2017-10-03 15:45 | REP ---
Portable chest x-ray: Two views. History: Chest pain. Comparison study: September 29, 2017. Findings: A S-shaped thoracolumbar scoliotic curve is again noted. The lungs are symmetrically aerated and free of infiltrate. There are old healed rib fractures on the right. Heart is not enlarged. EKG electrodes are seen. 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 Impression: Scoliosis. No active cardiopulmonary disease. Signed by Vasiliy Leos MD 10/03/2017 04:10 P
[2017-10-03] MEDS ORDERED: LABETALOL HCL 100 MG/20 ML VIAL IV STA (15:59)
[2017-10-03 16:03] LABS: BASO % 0.4 % (0.0-1.0); EOS # 0.2 10^3/uL (0.0-0.50); EOS % 2.4 % (0.0-3.0); IMMATURE GRANULOCYTE % 0.4 % (0-0); LYMPH # 1.5 10^3/uL (1.5-4.5); LYMPH % 16.3 % (24.0-44.0); MEAN CORPUSCULAR HEMOGLOBIN 26.8 pg (27.0-33.0); MONO # 0.6 10^3/uL (0.0-0.8); MONO % 7.1 % (0.0-5.0); NEUTROPHILS # 6.5 10^3/uL (1.8-7.7); NEUTROPHILS % 73.4 % (36.0-66.0); PLATELET COUNT, AUTOMATED 328 10^3/uL (150-450); RED CELL DISTRIBUTION WIDTH 16.7 % (11.5-14.5); WHITE BLOOD COUNT 8.9 10^3/uL (4.0-10.0)
[2017-10-03 16:06] VITALS: BP 168/87
[2017-10-03 17:10] LABS: ALBUMIN 3.2 GM/DL (3.2-5.2); ALBUMIN/GLOBULIN RATIO 0.76 (1.00-1.93); ALKALINE PHOSPHATASE 139 U/L (45-117); ALT/SGPT 22 U/L (12-78); ANION GAP 9 MEQ/L (8-16); AST/SGOT 54 U/L (7-37); BILIRUBIN,DIRECT 0.1 MG/DL (0.0-0.2); BILIRUBIN,TOTAL 0.3 MG/DL (0.2-1.0); BLOOD UREA NITROGEN 10 MG/DL (7-18); CALCIUM LEVEL 9.1 MG/DL (8.8-10.2); CARBON DIOXIDE LEVEL 26 MEQ/L (21-32); CHLORIDE LEVEL 104 MEQ/L (98-107); CREATININE FOR GFR 0.79 MG/DL (0.55-1.02); GLOMERULAR FILTRATION RATE > 60.0 (>39); GLUCOSE, FASTING 92 MG/DL (83-110); POTASSIUM SERUM 3.9 MEQ/L (3.5-5.1); SODIUM LEVEL 139 MEQ/L (136-145); TOTAL PROTEIN 7.4 GM/DL (6.4-8.2)
[2017-10-03 17:47] LABS: INR 2.69
--- NOTE | 2017-10-03 20:45 | ECGEPIP ---
Stationary ECG Study [facility] - ED Test Date: 2017-10-03 Pat Name: FABIAN PAGE Department: Room: - Gender: F Dialysis Tech: christi : 1940 Requested By: Shirley Viveros Order Number: [id number] Reading MD: Shirley Viveros Measurements Intervals [place] Rate: 99 P: 103 AL: 172 QRS: 49 QRSD: 157 T: 74 QT: 386 QTc: 497 Interpretive Statements SINUS RHYTHM WITH OCCASIONAL VENTRICULAR PREMATURE COMPLEXES LEFT BUNDLE BRANCH BLOCK MARKED ST ELEVATION, CONSIDER INFERIOR INJURY SIMILAR 09/29/17 Electronically Signed On 10-03-2017 20:45:08 EST by Shirley Viveros
[2017-10-03 21:41] VITALS: BP 162/89
--- NOTE | 2017-10-04 11:44 | ECGEPIP ---
Stationary ECG Study [facility] Test Date: 2017-10-03 Pat Name: FABIAN PAGE Department: Room: - Gender: F Box Maker Wood: christi : 1940 Requested By: HAROON Ambrocio Order Number: [id number] Reading MD: Moon Salcido Measurements Intervals [place] Rate: 81 P: 66 DE: 154 QRS: 7 QRSD: 153 T: 180 QT: 420 QTc: 488 Interpretive Statements SINUS RHYTHM LEFT BUNDLE BRANCH BLOCK rate SLOWER THAN 10/03/17 Electronically Signed On 10-04-2017 11:44:13 EST by Moon Salcido
== END 2017-10-03 21:43 | disposition short-term general hospital (02) ==
LOC: M ED 14:41
DX: R07.9 Chest pain, unspecified (principal); I10 Essential (primary) hypertension; G40.909 Epilepsy, unspecified, not intractable, without status epilepticus; Z79.899 Other long term (current) drug therapy; Z87.891 Personal history of nicotine dependence

== ENCOUNTER 2018-05-31 10:25 | Inpatient (IN) | payer MEDICARE ==
[2018-05-31 11:12] LABS: BASO % 0.4 % (0.0-1.0); EOS # 0.2 10^3/uL (0.0-0.50); EOS % 1.6 % (0.0-3.0); HEMATOCRIT 27.8 % (36.0-47.0); HEMOGLOBIN 7.8 g/dl (12.0-15.5); IMMATURE GRANULOCYTE % 0.5 % (0-3.0); LYMPH # 1.2 10^3/uL (1.5-4.5); MEAN CORPUSCULAR HEMOGLOBIN 19.9 pg (27.0-33.0); MEAN CORPUSCULAR HGB CONC 28.1 g/dl (32.0-36.5); MEAN CORPUSCULAR VOLUME 71.1 fl (80.0-96.0); MONO # 0.7 10^3/uL (0.0-0.8); MONO % 7.1 % (0.0-5.0); NEUTROPHILS # 7.8 10^3/uL (1.8-7.7); NEUTROPHILS % 78.4 % (36.0-66.0); PLATELET COUNT, AUTOMATED 450 10^3/uL (150-450); RED BLOOD COUNT 3.91 10^6/uL (4.00-5.40)
[2018-05-31] MEDS: PANTOPRAZOLE SODIUM 40 MG in D5W 50 ML IV ×2 (11:45→23:05)
[2018-05-31] MEDS: NS 1,000 ML IV (11:45)
[2018-05-31 12:02] LABS: INR 1.18; PROTHROMBIN TIME 15.2 SECONDS (12.1-14.4)
[2018-05-31 12:11] LABS: LACTIC ACID SEPSIS PROTOCOL 1.4 MMOL/L (0.4-2.0)
[2018-05-31 12:22] LABS: ALBUMIN 2.9 GM/DL (3.2-5.2); ALBUMIN/GLOBULIN RATIO 0.69 (1.00-1.93); ALKALINE PHOSPHATASE 121 U/L (45-117); ALT/SGPT 15 U/L (12-78); ANION GAP 8 MEQ/L (8-16); AST/SGOT 20 U/L (7-37); BILIRUBIN,DIRECT < 0.1 MG/DL (0.0-0.2); BILIRUBIN,TOTAL 0.2 MG/DL (0.2-1.0); BLOOD UREA NITROGEN 14 MG/DL (7-18); CALCIUM LEVEL 8.6 MG/DL (8.8-10.2); CARBON DIOXIDE LEVEL 24 MEQ/L (21-32); CHLORIDE LEVEL 107 MEQ/L (98-107); CK-MB VALUE MASS < 1.0 NG/ML (<3.6); CPK CREATINE PHOSPHOKINASE 41 U/L (26-192); CREATININE FOR GFR 0.77 MG/DL (0.55-1.30); GLOMERULAR FILTRATION RATE > 60.0 (>39); GLUCOSE, FASTING 94 MG/DL (70-100); LIPASE 85 U/L (73-393); MB/CK RELATIVE INDEX 2.43 (< OR =4); POTASSIUM SERUM 4.4 MEQ/L (3.5-5.1); SODIUM LEVEL 139 MEQ/L (136-145); TOTAL PROTEIN 7.1 GM/DL (6.4-8.2); TROPONIN I 0.02 NG/ML (< 0.10)
[2018-05-31] MEDS ORDERED: PANTOPRAZOLE SODIUM 40 MG in D5W 50 ML IV (15:45)
[2018-05-31] MEDS ORDERED: PROPOFOL 200 MG/20 ML VIAL As Ordered (16:08)
[2018-05-31] MEDS ORDERED: MIDAZOLAM INJ 2 MG/2 ML VIAL (J2250) As Ordered (16:08)
[2018-05-31] MEDS ORDERED: SUCCINYLCHOLINE 100 MG/5 ML SYRINGE (J0330) As Ordered ×2 (16:08)
[2018-05-31] MEDS ORDERED: LIDOCAINE 2% INJ 100 MG/5 ML SDV (FOR ANES.) As Ordered (16:08)
[2018-05-31] MEDS ORDERED: ROCURONIUM BROMIDE 50 MG/5 ML VIAL As Ordered (16:08)
[2018-05-31] MEDS ORDERED: fentaNYL 100 MCG/2 ML INJECTION (J3010) As Ordered (16:08)
[2018-05-31] MEDS ORDERED: ONDANSETRON 4MG/2ML VIAL (J2405) As Ordered (16:41)
[2018-05-31] MEDS ORDERED: dexameTHASONE 4 MG/ML 1ML VIAL (J1100) As Ordered (16:42)
[2018-05-31] MEDS ORDERED: ePHEDrine SULFATE 25 MG/5 ML(5MG/ML) SYRINGE As Ordered (16:53)
[2018-05-31] MEDS ORDERED: ONDANSETRON 4MG/2ML VIAL (J2405) IV (17:00)
[2018-05-31] MEDS ORDERED: ACETAMINOPHEN 325 MG TAB PO (17:00)
[2018-05-31] MEDS ORDERED: SUCRALFATE 1 GM TAB PO (17:00)
[2018-05-31] MEDS: LR 1,000 ML IV (17:30)
[2018-05-31 18:58] LABS: HEMATOCRIT 31.6 % (36.0-47.0)
[2018-05-31] MEDS: SUCRALFATE SUSP 1GM/10ML UD PO (19:13)
[2018-05-31 19:24] LABS: TROPONIN I < 0.02 NG/ML (< 0.10)
[2018-05-31] MEDS ORDERED: ACETAMINOPHEN TAB 650MG DOSE (2X325MG) PO (20:35)
[2018-05-31] MEDS ORDERED: ENTER DRUG NAME HERE (PATIENT'S OWN MED) PO (21:00)
[2018-05-31] MEDS: FERROUS SULFATE 325MG TAB PO (21:39)
[2018-05-31] MEDS: PHENobarbital 30 MG TAB PO (21:41)
[2018-05-31] MEDS: PHENYTOIN ER 100 MG CAP PO (21:42)
[2018-05-31 22:37] LABS: HEMATOCRIT 27.8 % (36.0-47.0)
[2018-05-31 22:59] LABS: TROPONIN I < 0.02 NG/ML (< 0.10)
[2018-06-01] MEDS: SUCRALFATE SUSP 1GM/10ML UD PO ×4 (00:25→17:16)
[2018-06-01] MEDS: PANTOPRAZOLE SODIUM 40 MG in D5W 50 ML IV ×3 (03:18→08:39)
[2018-06-01 03:55] LABS: HEMATOCRIT 26.4 % (36.0-47.0); HEMOGLOBIN 7.6 g/dl (12.0-15.5); MEAN CORPUSCULAR HEMOGLOBIN 21.2 pg (27.0-33.0); MEAN CORPUSCULAR HGB CONC 28.8 g/dl (32.0-36.5); MEAN CORPUSCULAR VOLUME 73.7 fl (80.0-96.0); PLATELET COUNT, AUTOMATED 423 10^3/uL (150-450); RED BLOOD COUNT 3.58 10^6/uL (4.00-5.40); RED CELL DISTRIBUTION WIDTH 23.6 % (11.5-14.5); WHITE BLOOD COUNT 7.9 10^3/uL (4.0-10.0)
[2018-06-01 04:15] LABS: ANION GAP 6 MEQ/L (8-16); BLOOD UREA NITROGEN 9 MG/DL (7-18); CALCIUM LEVEL 8.3 MG/DL (8.8-10.2); CARBON DIOXIDE LEVEL 25 MEQ/L (21-32); CHLORIDE LEVEL 108 MEQ/L (98-107); CREATININE FOR GFR 0.69 MG/DL (0.55-1.30); GLOMERULAR FILTRATION RATE > 60.0 (>39); GLUCOSE, FASTING 91 MG/DL (70-100); MAGNESIUM LEVEL 1.8 MG/DL (1.8-2.4); POTASSIUM SERUM 3.9 MEQ/L (3.5-5.1); SODIUM LEVEL 139 MEQ/L (136-145)
[2018-06-01 07:46] LABS: TROPONIN I < 0.02 NG/ML (< 0.10)
[2018-06-01] MEDS: NS 1,000 ML IV (07:56)
[2018-06-01] MEDS ORDERED: ENTER DRUG NAME HERE (PATIENT'S OWN MED) PO (09:00)
[2018-06-01] MEDS: PHENobarbital 30 MG TAB PO ×2 (09:06→20:37)
[2018-06-01] MEDS: PHENYTOIN ER 100 MG CAP PO ×2 (09:06→20:37)
[2018-06-01] MEDS: FERROUS SULFATE 325MG TAB PO ×2 (09:06→20:37)
[2018-06-01] MEDS: VITAMIN D 1,000 INTERNATIONAL UNITS TABLET PO (09:06)
[2018-06-01] MEDS: amLODIPine 10 MG TAB PO (09:07)
[2018-06-01 10:08] LABS: IMMEDIATE SPIN CROSSMATCH 1 4
[2018-06-01] MEDS ORDERED: SLF 3 ML SYR IV (14:30)
[2018-06-01] MEDS: OMEPRAZOLE 20 MG CAP PO (20:37)
[2018-06-01] MEDS: SLF 3 ML SYR IV (20:38)
[2018-06-01 22:14] LABS: MEAN CORPUSCULAR HEMOGLOBIN 22.2 pg (27.0-33.0); MEAN CORPUSCULAR HGB CONC 29.4 g/dl (32.0-36.5); MEAN CORPUSCULAR VOLUME 75.4 fl (80.0-96.0); PLATELET COUNT, AUTOMATED 413 10^3/uL (150-450); RED BLOOD COUNT 4.64 10^6/uL (4.00-5.40); RED CELL DISTRIBUTION WIDTH 24.6 % (11.5-14.5)
[2018-06-01 22:25] LABS: HEMOGLOBIN 10.3 g/dl (12.0-15.5)
[2018-06-02] MEDS: SUCRALFATE SUSP 1GM/10ML UD PO ×2 (00:16→06:19)
[2018-06-02 04:55] LABS: HEMATOCRIT 32.6 % (36.0-47.0); HEMOGLOBIN 9.9 g/dl (12.0-15.5); MEAN CORPUSCULAR HEMOGLOBIN 22.3 pg (27.0-33.0); MEAN CORPUSCULAR HGB CONC 30.4 g/dl (32.0-36.5); MEAN CORPUSCULAR VOLUME 73.4 fl (80.0-96.0); PLATELET COUNT, AUTOMATED 386 10^3/uL (150-450); RED BLOOD COUNT 4.44 10^6/uL (4.00-5.40); RED CELL DISTRIBUTION WIDTH 24.6 % (11.5-14.5); WHITE BLOOD COUNT 6.1 10^3/uL (4.0-10.0)
[2018-06-02 05:14] LABS: ANION GAP 6 MEQ/L (8-16); BLOOD UREA NITROGEN 8 MG/DL (7-18); CALCIUM LEVEL 8.4 MG/DL (8.8-10.2); CARBON DIOXIDE LEVEL 27 MEQ/L (21-32); CHLORIDE LEVEL 108 MEQ/L (98-107); CREATININE FOR GFR 0.64 MG/DL (0.55-1.30); GLOMERULAR FILTRATION RATE > 60.0 (>39); GLUCOSE, FASTING 85 MG/DL (70-100); MAGNESIUM LEVEL 1.9 MG/DL (1.8-2.4); POTASSIUM SERUM 3.6 MEQ/L (3.5-5.1); SODIUM LEVEL 141 MEQ/L (136-145)
[2018-06-02] MEDS: SLF 3 ML SYR IV (06:19)
[2018-06-02] MEDS: OMEPRAZOLE 20 MG CAP PO (08:49)
[2018-06-02] MEDS: PHENYTOIN ER 100 MG CAP PO (08:50)
[2018-06-02] MEDS: PHENobarbital 30 MG TAB PO (08:50)
[2018-06-02] MEDS: VITAMIN D 1,000 INTERNATIONAL UNITS TABLET PO (08:51)
[2018-06-02] MEDS: FERROUS SULFATE 325MG TAB PO (08:51)
[2018-06-02] MEDS: amLODIPine 10 MG TAB PO (08:52)
== END 2018-06-02 13:45 | disposition home or self-care (01) | DRG 327 ==
LOC: M ED 10:25 → M ED INP 15:27 → M PCU 17:58
PROVIDERS: Emergency Medicine Pediatric Emergency Medicine
PROC: 0D754ZZ Dilation of Esophagus, Percutaneous Endoscopic Approach (ICD-10-PCS; principal; 2018-05-31 16:00)
PROC: 30233N1 Transfusion of Nonautologous Red Blood Cells into Peripheral Vein, Percutaneous Approach (ICD-10-PCS; 2018-05-31 16:00)
DX: K22.11 Ulcer of esophagus with bleeding (principal); D62 Acute posthemorrhagic anemia; K44.9 Diaphragmatic hernia without obstruction or gangrene; D50.9 Iron deficiency anemia, unspecified; J44.9 Chronic obstructive pulmonary disease, unspecified; K22.2 Esophageal obstruction; M81.0 Age-related osteoporosis without current pathological fracture; K21.9 Gastro-esophageal reflux disease without esophagitis; I10 Essential (primary) hypertension; G40.909 Epilepsy, unspecified, not intractable, without status epilepticus; M34.1 CR(E)ST syndrome; Z79.82 Long term (current) use of aspirin; Z79.899 Other long term (current) drug therapy; Z96.653 Presence of artificial knee joint, bilateral; I73.00 Raynaud's syndrome without gangrene

== ENCOUNTER 2018-06-20 21:15 | Emergency (ER) | payer MEDICARE ==
[2018-06-20] MEDS: ASPIRIN 81 MG CHEW TABLET PO (22:06)
[2018-06-20 22:20] LABS: ANION GAP 9 MEQ/L (8-16); BLOOD UREA NITROGEN 9 MG/DL (7-18); CALCIUM LEVEL 8.6 MG/DL (8.8-10.2); CARBON DIOXIDE LEVEL 26 MEQ/L (21-32); CHLORIDE LEVEL 103 MEQ/L (98-107); CK-MB VALUE MASS < 1.0 NG/ML (<3.6); CPK CREATINE PHOSPHOKINASE 24 U/L (26-192); CREATININE FOR GFR 0.81 MG/DL (0.55-1.30); GLOMERULAR FILTRATION RATE > 60.0 (>39); GLUCOSE, FASTING 123 MG/DL (70-100); MB/CK RELATIVE INDEX 4.16 (< OR =4); POTASSIUM SERUM 3.9 MEQ/L (3.5-5.1); SODIUM LEVEL 138 MEQ/L (136-145); TROPONIN I < 0.02 NG/ML (< 0.10)
[2018-06-20 22:35] LABS: PROTHROMBIN TIME 14.4 SECONDS (12.1-14.4)
[2018-06-20 22:36] LABS: PARTIAL THROMBOPLASTIN TIME 35.4 SECONDS (25.4-37.6)
[2018-06-20 23:10] LABS: BASO % 0.3 % (0.0-1.0); EOS # 0.1 10^3/uL (0.0-0.50); EOS % 0.7 % (0.0-3.0); HEMATOCRIT 36.4 % (36.0-47.0); HEMOGLOBIN 11.3 g/dl (12.0-15.5); IMMATURE GRANULOCYTE % 0.3 % (0-3.0); LYMPH # 1.4 10^3/uL (1.5-4.5); LYMPH % 14.3 % (24.0-44.0); MEAN CORPUSCULAR HEMOGLOBIN 25.6 pg (27.0-33.0); MEAN CORPUSCULAR VOLUME 82.4 fl (80.0-96.0); MONO # 1.4 10^3/uL (0.0-0.8); MONO % 14.8 % (0.0-5.0); NEUTROPHILS # 6.6 10^3/uL (1.8-7.7); NEUTROPHILS % 69.6 % (36.0-66.0); PLATELET COUNT, AUTOMATED 317 10^3/uL (150-450); RED BLOOD COUNT 4.42 10^6/uL (4.00-5.40); WHITE BLOOD COUNT 9.5 10^3/uL (4.0-10.0)
[2018-06-20 23:11] LABS: ADD MORPHOLOGY? YES; POSITIVE MORPH POS FLAG
[2018-06-20 23:12] LABS: ANISOCYTOSIS 4+
[2018-06-20 23:13] LABS: MICROCYTOSIS 2+; OVALOCYTES 1+; PLATELET ESTIMATE NORMAL (NORMAL); SCHISTOCYTES 1+
== END 2018-06-21 00:22 | disposition home or self-care (01) ==
LOC: M ED 06-21 00:22
DX: R07.89 Other chest pain (principal); R00.0 Tachycardia, unspecified; I44.7 Left bundle-branch block, unspecified; I25.10 Atherosclerotic heart disease of native coronary artery without angina pectoris; I25.2 Old myocardial infarction; K21.9 Gastro-esophageal reflux disease without esophagitis; Z79.899 Other long term (current) drug therapy; Z79.82 Long term (current) use of aspirin
CPT/HCPCS: 71046

== ENCOUNTER → 2018-08-29 | Outpatient (REF) | payer MEDICARE ==
[2018-08-29 17:12] LABS: RETIC HEMOGLOBIN EQUIVALENT 36.1 pg (24-36); RETICULOCYTE # 48.4 10^9/L (17-77); RETICULOCYTE % 1.1 % (0.5-1.5)
[2018-08-29 17:59] LABS: FERRITIN 73 NG/ML (8-252); IRON (FE) 42 UG/DL (50-170); PERCENT SATURATION 22.8 % (13.2-45.0); PHENOBARBITAL LEVEL 28.3 UG/ML (15.0-40.0); PHENYTOIN (DILANTIN) 4.5 UG/ML (10.0-20.0); TOTAL IRON BINDING CAPACITY 184 UG/DL (250-450)
== END ==
LOC: M LAB REF 16:52
DX: D50.9 Iron deficiency anemia, unspecified (principal)
CPT/HCPCS: 80185

== ENCOUNTER → 2018-12-02 | Outpatient (REF) | payer MEDICARE ==
[~2018-12-02] MED LIST changes: -/PHEN9TA OR; +/PHEN9TA PO; +ASPI1TAB PO; -DILA100C OR; +DILA100C PO; +IRON325T7 PO; +OMEP20CA3 PO; -PHEN64.8 OR; +PHEN64.8 PO; +SUCR10SS PO; -VIT D 2000 OR; +VIT D 2000 PO
== END ==
LOC: M LAB REF 17:29
PROVIDERS: ATTEND Family Medicine
DX: D64.9 Anemia, unspecified (principal)

== ENCOUNTER → 2019-06-11 | Outpatient (REF) | payer MEDICARE, MEDICAID ==
[~2019-06-11] MED LIST changes: -/PHEN9TA PO; -/WARF25TA; -/WARF25TA PO; -ASPI1TAB PO; +ASPI81TA26 PO; +COUM1TAB18; +COUM1TAB18 PO; +FERR325T82 PO; -IRON325T7 PO; -OMEP20CA3 PO; +OMEP20CA4 PO; -PHEN10TA; +PHEN1TAB; +PHEN1TAB26 PO
[2019-06-11 17:45] LABS: PHENOBARBITAL LEVEL 22.7 UG/ML (15.0-40.0)
[2019-06-12 11:07] LABS: VITAMIN B12 LEVEL 1664 PG/ML
== END ==
LOC: M LAB REF 16:45
PROVIDERS: ATTEND Family Medicine
DX: R56.9 Unspecified convulsions (principal); D64.9 Anemia, unspecified

== ENCOUNTER → 2020-02-24 | Outpatient (REF) | payer MEDICARE, MEDICAID ==
[~2020-02-24] MED LIST changes: +OMEP1CAP73 PO; -OMEP20CA4 PO; -SUCR10SS PO; +SUCR1ORA2 PO
[2020-02-24 18:13] LABS: PERCENT SATURATION 7.9 % (13.2-45.0)
[2020-02-24 18:18] LABS: FOLATE 6.5 NG/ML
== END ==
LOC: M LAB REF 17:00
PROVIDERS: ATTEND Family Medicine
DX: D64.9 Anemia, unspecified (principal)

== ENCOUNTER 2020-03-03 18:13 | Emergency (ER) | payer MEDICARE, MEDICAID ==
[~2020-03-03] VITALS: Ht 160 cm; Wt 85.7 kg
[2020-03-03] MEDS ORDERED: LIDOCAINE VISCOUS 2% SOLN 15ML UDC PO ONE (18:30)
[2020-03-03] MEDS ORDERED: CHLO0.5L MT (19:22)
[2020-03-03 19:55] VITALS: BP 149/75
== END 2020-03-03 20:16 | disposition home or self-care (01) ==
LOC: M ED 18:13
DX: J02.9 Acute pharyngitis, unspecified (principal); R13.13 Dysphagia, pharyngeal phase; K21.9 Gastro-esophageal reflux disease without esophagitis; R56.9 Unspecified convulsions; M34.9 Systemic sclerosis, unspecified; Z79.899 Other long term (current) drug therapy

== ENCOUNTER → 2020-04-20 | Outpatient (REF) | payer MEDICARE, MEDICAID ==
[~2020-04-20] MED LIST changes: +CHLO0.5L MT
[2020-04-20 19:13] LABS: PHENOBARBITAL LEVEL 25.2 UG/ML (15.0-40.0); PHENYTOIN (DILANTIN) 6.1 UG/ML (10.0-20.0)
== END ==
LOC: M LAB REF 18:14
PROVIDERS: ATTEND Family Medicine
DX: R56.9 Unspecified convulsions (principal)

== ENCOUNTER → 2020-09-22 | Outpatient (REF) | payer MEDICARE, MEDICAID ==
[2020-09-22 17:12] LABS: PERCENT SATURATION 23.7 % (13.2-45.0)
== END ==
LOC: M LAB REF 16:12
PROVIDERS: ATTEND Family Medicine
DX: D64.9 Anemia, unspecified (principal)

== ENCOUNTER → 2021-12-07 | Outpatient (REF) | payer MEDICARE, MEDICAID | LOC: M LAB REF 16:30 | PROVIDERS: ATTEND Family Medicine | DX: D64.9 Anemia, unspecified (principal) ==

== ENCOUNTER → 2022-12-15 | Outpatient (REF) | payer MEDICARE, MEDICAID ==
[2022-12-15 16:40] LABS: PERCENT SATURATION 74.3 % (13.2-45.0)
[2022-12-15 16:43] LABS: FERRITIN 38.2 NG/ML (7.3-270.7)
[2022-12-15 16:44] LABS: FOLATE 11.7 NG/ML (>5.4)
== END ==
LOC: M LAB REF 15:58
PROVIDERS: ATTEND Family Medicine
DX: D64.9 Anemia, unspecified (principal)

== ENCOUNTER → 2023-07-04 | Outpatient (CLI) | payer MEDICARE, MEDICAID ==
[~2023-07-04] MED LIST changes: +ISOVUE-370 76% 100ML VIAL As Ordered ONE
== END ==
LOC: M RAD 17:26
PROVIDERS: ATTEND Family Medicine
DX: R91.1 Solitary pulmonary nodule (principal); J43.2 Centrilobular emphysema; I25.10 Atherosclerotic heart disease of native coronary artery without angina pectoris; I70.0 Atherosclerosis of aorta; R59.0 Localized enlarged lymph nodes; I71.43 Infrarenal abdominal aortic aneurysm, without rupture; K44.9 Diaphragmatic hernia without obstruction or gangrene; M19.011 Primary osteoarthritis, right shoulder; M19.012 Primary osteoarthritis, left shoulder; N28.1 Cyst of kidney, acquired; R91.8 Other nonspecific abnormal finding of lung field
CPT/HCPCS: 71250; Q9967

== ENCOUNTER → 2023-09-10 | Outpatient (CLI) | payer MEDICARE, MEDICAID ==
[~2023-09-10] MED LIST changes: -ISOVUE-370 76% 100ML VIAL As Ordered ONE
== END ==
LOC: M RAD 08:55
PROVIDERS: ATTEND Internal Medicine Pulmonary Disease
DX: R06.00 Dyspnea, unspecified (principal); M34.1 CR(E)ST syndrome; R91.8 Other nonspecific abnormal finding of lung field
CPT/HCPCS: 71046; 78582; A9540; A9567

== ENCOUNTER → 2024-01-18 | Outpatient (REF) | payer MEDICARE, MEDICAID | LOC: M LAB REF 12:20 | PROVIDERS: ATTEND Family Medicine | DX: I27.20 Pulmonary hypertension, unspecified (principal) ==

== ENCOUNTER → 2024-02-27 | Outpatient (REF) | payer MEDICARE, MEDICAID ==
[2024-02-27 14:08] LABS: FERRITIN 27.1 NG/ML (7.3-270.7)
== END ==
LOC: M LAB REF 13:01
PROVIDERS: ATTEND Family Medicine
DX: D50.9 Iron deficiency anemia, unspecified (principal); I27.20 Pulmonary hypertension, unspecified

== ENCOUNTER 2024-03-31 10:28 | Inpatient (IN) | payer MEDICARE, MEDICAID ==
[~2024-03-31] VITALS: Ht 154.9 cm; Wt 70.0 kg
[2024-03-31] MEDS: KETOROLAC 30 MG/ML 1ML VIAL IV ONE (12:05)
[2024-03-31] MEDS: ACETAMINOPHEN 325MG/10.15ML UDC PO ONE (13:24)
[2024-03-31] MEDS ORDERED: TORS10TA3 PO (15:08)
[2024-03-31] MEDS ORDERED: PHEN60TA9 PO (15:08)
[2024-03-31] MEDS ORDERED: SPIR-10 PO (15:10)
[2024-03-31] MEDS ORDERED: LETA1TAB PO (15:10)
[2024-03-31] MEDS ORDERED: TORS20TA2 PO (15:10)
[2024-03-31] MEDS ORDERED: ADCI20TA PO (15:11)
[2024-03-31 15:18] LABS: BASO % 0.2 % (0.0-1.0); HEMATOCRIT 44.3 % (36.0-47.0); HEMOGLOBIN 14.8 g/dl (12.0-15.5); LYMPH # 0.9 10^3/uL (1.5-5.0); LYMPH % 9.9 % (24.0-44.0); MEAN CORPUSCULAR HEMOGLOBIN 29.9 pg (27.0-33.0); MEAN CORPUSCULAR HGB CONC 33.4 g/dl (32.0-36.5); MEAN CORPUSCULAR VOLUME 89.5 fl (80.0-96.0); MONO # 0.7 10^3/uL (0.0-0.8); MONO % 7.5 % (2.0-8.0); NEUTROPHILS # 7.8 10^3/uL (1.5-8.5); NEUTROPHILS % 82.2 % (36.0-66.0); PLATELET COUNT, AUTOMATED 241 10^3/uL (150-450); RED BLOOD COUNT 4.95 10^6/uL (4.00-5.40); WHITE BLOOD COUNT 9.4 10^3/uL (4.0-10.0)
[2024-03-31 15:47] LABS: ALBUMIN 3.1 G/DL (3.2-5.2); BILIRUBIN,TOTAL 0.5 MG/DL (0.3-1.2); CALCIUM LEVEL 9.5 MG/DL (8.3-10.6); CREATININE FOR GFR 0.98 MG/DL (0.55-1.30); GLOMERULAR FILTRATION RATE 57.8 (>32); POTASSIUM SERUM 4.2 MMOL/L (3.5-5.1)
[2024-03-31 15:49] LABS: PHENOBARBITAL LEVEL 25.6 UG/ML (15.0-40.0)
[2024-03-31] MEDS ORDERED: ACETAMINOPHEN TAB 650MG DOSE (2X325MG) PO PRN (16:25)
[2024-03-31] MEDS ORDERED: HOME MED LIST COMPLETE! XX SCH (17:10)
[2024-03-31] MEDS ORDERED: KETOROLAC 30 MG/ML 1ML VIAL IV PRN (17:40)
[2024-03-31] MEDS ORDERED: KETOROLAC TROMETHAMINE 10 MG TAB PO SCH (17:40)
[2024-03-31] MEDS: ONDANSETRON 4MG 2ML VIAL IV SCH (17:53)
[2024-03-31] MEDS: MORPHINE 2 MG/ML 1ML VIAL IV PRN (17:58)
[2024-03-31 18:00] VITALS: BP 114/59; TEMP 97.3; O2SAT 100
[2024-03-31] MEDS: ACETAMINOPHEN 325MG/10.15ML UDC PO PRN (18:35)
[2024-03-31 20:00] VITALS: BP 112/59; TEMP 97.7; O2SAT 92; O2SAT 96
[2024-03-31] MEDS ORDERED: ACETAMINOPHEN 325 MG TAB PO PRN (20:25)
[2024-03-31] MEDS: PHENobarbitaL 30 MG TAB PO SCH (22:07)
[2024-03-31] MEDS: HEPARIN SOD (PORCINE) 5000UNITS/ML 1ML VIAL/SYRINGE SC SCH (22:08)
[2024-04-01] VITALS (9 sets, daily range): BP systolic 94–111; BP diastolic 49–74; TEMP 97–97.5; O2SAT 89–96
[2024-04-01] MEDS: LR 1,000 ML IV ONE (06:02)
[2024-04-01 06:51] LABS: HEMATOCRIT 41.3 % (36.0-47.0); MEAN CORPUSCULAR HEMOGLOBIN 29.4 pg (27.0-33.0); MEAN CORPUSCULAR HGB CONC 31.5 g/dl (32.0-36.5); MEAN CORPUSCULAR VOLUME 93.4 fl (80.0-96.0); PLATELET COUNT, AUTOMATED 203 10^3/uL (150-450); RED BLOOD COUNT 4.42 10^6/uL (4.00-5.40); WHITE BLOOD COUNT 7.3 10^3/uL (4.0-10.0)
[2024-04-01 07:17] LABS: ALBUMIN 2.7 G/DL (3.2-5.2); BILIRUBIN,TOTAL 0.4 MG/DL (0.3-1.2); CALCIUM LEVEL 8.7 MG/DL (8.3-10.6); CREATININE FOR GFR 1.26 MG/DL (0.55-1.30); GLOMERULAR FILTRATION RATE 43.3 (>32); POTASSIUM SERUM 4.4 MMOL/L (3.5-5.1); TOTAL PROTEIN 7.1 G/DL (5.7-8.2)
[2024-04-01] MEDS: SPIRONOLACTONE 12.5MG PER 1/2 TABLET PO SCH (08:33)
[2024-04-01] MEDS: TORSEMIDE 20 MG TAB PO SCH (08:33)
[2024-04-01] MEDS: PANTOPRAZOLE 40MG VIAL IV SCH (08:37)
[2024-04-01] MEDS: LR 1,000 ML IV SCH ×2 (08:38→14:55)
[2024-04-01] MEDS ORDERED: ENTER DRUG NAME HERE (PATIENT'S OWN MED) PO SCH (09:00)
[2024-04-01] MEDS ORDERED: MIDAZOLAM INJ 2MG/2ML VIAL As Ordered ONE (10:56)
[2024-04-01] MEDS ORDERED: fentaNYL 100 MCG/2 ML INJECTION As Ordered ONE (10:57)
[2024-04-01] MEDS ORDERED: KETAMINE HCL 200MG/20ML VIAL As Ordered ONE (12:04)
[2024-04-01] MEDS: ceFAZolin 2 GM/D5W 50 ML IV BAG As Ordered ONE (12:45)
[2024-04-01] MEDS ORDERED: PHENYLEPHRINE 10MG/ML 1ML VIAL As Ordered ONE (13:12)
[2024-04-01] MEDS ORDERED: ONDANSETRON 4MG 2ML VIAL As Ordered ONE (14:26)
[2024-04-01] MEDS ORDERED: ACETAMINOPHEN 1000MG 100ML IV BAG As Ordered ONE (14:27)
[2024-04-01] MEDS ORDERED: propofoL 200 MG/20 ML VIAL As Ordered ONE (14:35)
[2024-04-01] MEDS ORDERED: PHENYLephrine 500MCG 5ML (100MCG/ML) SYRINGE As Ordered ONE (14:36)
[2024-04-01] MEDS ORDERED: ePHEDrine SULFATE 25 MG/5 ML(5MG/ML) SYRINGE As Ordered ONE (14:36)
[2024-04-01] MEDS ORDERED: HYDROMORPHONE HCL 0.5 MG/ 0.5 ML SYRINGE IV PRN (14:55)
[2024-04-01] MEDS ORDERED: ONDANSETRON 4MG 2ML VIAL IV PRN (14:55)
[2024-04-01] MEDS: fentaNYL 100 MCG/2 ML INJECTION IV PRN (15:46)
[2024-04-01] MEDS: oxyCODONE 5MG TAB PO PRN (16:07)
[2024-04-01] MEDS: ceFAZolin SOD 2 GM in IV 1 EA IV SCH (21:13)
[2024-04-02] VITALS (13 sets, daily range): BP systolic 80–110; BP diastolic 38–84; TEMP 97.3–98.1; O2SAT 85–95
[2024-04-02 08:39] LABS: HEMATOCRIT 31.3 % (36.0-47.0); MEAN CORPUSCULAR HGB CONC 32.6 g/dl (32.0-36.5); MEAN CORPUSCULAR VOLUME 92.1 fl (80.0-96.0); PLATELET COUNT, AUTOMATED 183 10^3/uL (150-450); WHITE BLOOD COUNT 9.2 10^3/uL (4.0-10.0)
[2024-04-02 08:46] LABS: HEMOGLOBIN 10.2 g/dl (12.0-15.5)
[2024-04-02] MEDS ORDERED: ENTER DRUG NAME HERE (PATIENT'S OWN MED) PO SCH (09:00)
[2024-04-02 09:02] LABS: CALCIUM LEVEL 7.9 MG/DL (8.3-10.6); CREATININE FOR GFR 1.02 MG/DL (0.55-1.30); GLOMERULAR FILTRATION RATE 55.2 (>32)
[2024-04-02] MEDS: KETOROLAC 30 MG/ML 1ML VIAL IV PRN (09:06)
[2024-04-02 12:56] LABS: PROCALCITONIN 0.09 ng/ml
[2024-04-02] MEDS ORDERED: ISOVUE-370 76% 100ML VIAL As Ordered ONE (13:10)
[2024-04-02] MEDS: PIPERACILLIN/TAZOBACTAM SOD 3.375 GM in D5W MINI-BAG PLUS 50 ML IV SCH (13:49)
[2024-04-02] MEDS: NS 500 ML IV ONE ×2 (14:46→15:51)
[2024-04-02] MEDS: VANCOMYCIN HCL 750 MG, VIAL MATE ADAPTER 1 EACH in D5W 250 ML IV ONE ×2 (15:51→17:06)
[2024-04-02] MEDS: HYALURONIDASE 15UNIT/ML 1ML SYRINGE (AMPHADASE) SC ONE (18:06)
[2024-04-02] MEDS: HYDROCORTISONE 100MG/2ML VIAL IV SCH (18:26)
[2024-04-02 18:28] LABS: BASO % 0.2 % (0.0-1.0); EOS % 0.1 % (0.0-3.0); HEMOGLOBIN 9.3 g/dl (12.0-15.5); LYMPH # 1.1 10^3/uL (1.5-5.0); LYMPH % 11.7 % (24.0-44.0); MEAN CORPUSCULAR HEMOGLOBIN 30.4 pg (27.0-33.0); MEAN CORPUSCULAR HGB CONC 32.1 g/dl (32.0-36.5); MEAN CORPUSCULAR VOLUME 94.8 fl (80.0-96.0); MONO % 10.8 % (2.0-8.0); NEUTROPHILS # 7.3 10^3/uL (1.5-8.5); NEUTROPHILS % 76.9 % (36.0-66.0); PLATELET COUNT, AUTOMATED 154 10^3/uL (150-450); RED BLOOD COUNT 3.06 10^6/uL (4.00-5.40); WHITE BLOOD COUNT 9.6 10^3/uL (4.0-10.0)
[2024-04-02 18:50] LABS: CREATININE FOR GFR 1.04 MG/DL (0.55-1.30)
[2024-04-02 21:03] LABS: ABG BASE EXCESS -0.2 (-2.0-2.0); ABG HCO3 24.1 MMOL/L (22.0-26.0); ABG O2 SATURATION 90.7 % (95.0-99.0); ABG PARTIAL PRESSURE CO2 37.5 mmHg (35.0-45.0); ABG STANDARD HCO3 24.2 MMOL/L. (22.0-26.0); ABG TOTAL CO2 25.2 MMOL/L (23.0-31.0); ABG pH (ARTERIAL) 7.425 UNITS (7.350-7.450)
[2024-04-02 21:22] LABS: VENOUS BASE EXCESS -3.2 (-2.0-2.0); VENOUS HCO3 22.5 MMOL/L (23.0-27.0); VENOUS O2 SATURATION 89.9 % (60.0-80.0); VENOUS PARTIAL PRESSURE CO2 42.9 mmHg (38.0-50.0); VENOUS PARTIAL PRESSURE O2 63.5 mmHg (30.0-50.0); VENOUS PH 7.337 UNITS (7.330-7.430); VENOUS STANDARD HCO3 21.7 MMOL/L; VENOUS TOTAL CO2 23.8 MMOL/L (24.0-28.0)
[2024-04-03] VITALS (16 sets, daily range): BP systolic 100–129; BP diastolic 49–57; TEMP 96.4–98.3; O2SAT 86–97
[2024-04-03 07:08] LABS: HEMATOCRIT 27.3 % (36.0-47.0); HEMOGLOBIN 8.8 g/dl (12.0-15.5); MEAN CORPUSCULAR HEMOGLOBIN 29.8 pg (27.0-33.0); MEAN CORPUSCULAR HGB CONC 32.2 g/dl (32.0-36.5); MEAN CORPUSCULAR VOLUME 92.5 fl (80.0-96.0); PLATELET COUNT, AUTOMATED 161 10^3/uL (150-450); RED BLOOD COUNT 2.95 10^6/uL (4.00-5.40); WHITE BLOOD COUNT 9.2 10^3/uL (4.0-10.0)
[2024-04-03 07:24] LABS: VANCOMYCIN LEVEL TROUGH 14.5 UG/ML (10.0-20.0)
[2024-04-03 07:25] LABS: CALCIUM LEVEL 7.9 MG/DL (8.3-10.6); CREATININE FOR GFR 1.03 MG/DL (0.55-1.30); GLOMERULAR FILTRATION RATE 54.6 (>32); POTASSIUM SERUM 4.3 MMOL/L (3.5-5.1)
[2024-04-03] MEDS: VANCOMYCIN HCL 1,000 MG, VIAL MATE ADAPTER 1 EACH in D5W 250 ML IV SCH (08:56)
[2024-04-03 11:58] LABS: ABG BASE EXCESS -1.1 (-2.0-2.0); ABG HCO3 22.6 MMOL/L (22.0-26.0); ABG O2 SATURATION 92.9 % (95.0-99.0); ABG PARTIAL PRESSURE CO2 33.8 mmHg (35.0-45.0); ABG PARTIAL PRESSURE O2 65.3 mmHg (75.0-100.0); ABG STANDARD HCO3 23.5 MMOL/L. (22.0-26.0); ABG TOTAL CO2 23.6 MMOL/L (23.0-31.0); ABG pH (ARTERIAL) 7.443 UNITS (7.350-7.450)
[2024-04-03] MEDS ORDERED: ONDANSETRON 4MG 2ML VIAL IV PRN (13:10)
[2024-04-04] VITALS (25 sets, daily range): BP systolic 104–120; BP diastolic 52–62; TEMP 97.2–100.8; O2SAT 87–94
[2024-04-04 07:12] LABS: HEMATOCRIT 26.8 % (36.0-47.0); HEMOGLOBIN 8.6 g/dl (12.0-15.5); MEAN CORPUSCULAR HEMOGLOBIN 29.8 pg (27.0-33.0); MEAN CORPUSCULAR HGB CONC 32.1 g/dl (32.0-36.5); MEAN CORPUSCULAR VOLUME 92.7 fl (80.0-96.0); PLATELET COUNT, AUTOMATED 172 10^3/uL (150-450); RED BLOOD COUNT 2.89 10^6/uL (4.00-5.40); WHITE BLOOD COUNT 7.6 10^3/uL (4.0-10.0)
[2024-04-04 07:29] LABS: CALCIUM LEVEL 7.6 MG/DL (8.3-10.6); CREATININE FOR GFR 0.99 MG/DL (0.55-1.30); GLOMERULAR FILTRATION RATE 57.2 (>32); POTASSIUM SERUM 3.9 MMOL/L (3.5-5.1)
[2024-04-04] MEDS ORDERED: IRON SUCROSE 100MG 5ML VIAL IV SCH (14:45)
[2024-04-04] MEDS: IRON SUCROSE 200 MG in NS 100 ML IV SCH (17:33)
[2024-04-05] VITALS (27 sets, daily range): BP systolic 104–129; BP diastolic 52–61; TEMP 97.3–99.4; O2SAT 89–96
[2024-04-05 05:07] LABS: HEMOGLOBIN 9.3 g/dl (12.0-15.5); MEAN CORPUSCULAR HEMOGLOBIN 30.4 pg (27.0-33.0); MEAN CORPUSCULAR HGB CONC 33.2 g/dl (32.0-36.5); MEAN CORPUSCULAR VOLUME 91.5 fl (80.0-96.0); PLATELET COUNT, AUTOMATED 215 10^3/uL (150-450); RED BLOOD COUNT 3.06 10^6/uL (4.00-5.40); WHITE BLOOD COUNT 6.9 10^3/uL (4.0-10.0)
[2024-04-05 05:39] LABS: BLOOD UREA NITROGEN 13 MG/DL (9-23); CALCIUM LEVEL 8.1 MG/DL (8.3-10.6); CARBON DIOXIDE LEVEL 30 MMOL/L (20-31); CHLORIDE LEVEL 104 MMOL/L (98-107); CREATININE FOR GFR 0.85 MG/DL (0.55-1.30); GLOMERULAR FILTRATION RATE > 60.0 (>32); GLUCOSE, FASTING 86 MG/DL (74-106); POTASSIUM SERUM 3.8 MMOL/L (3.5-5.1); SODIUM LEVEL 137 MMOL/L (136-145)
[2024-04-05] MEDS: ALBUTEROL SULFATE 2.5MG/0.5ML INH NEB SOLN NEB SCH (11:49)
[2024-04-05] MEDS: SODIUM CHLORIDE HYPERTONIC 3% 4ML NEB SOL INH SCH (11:50)
[2024-04-06] VITALS (24 sets, daily range): BP systolic 90–127; BP diastolic 50–63; TEMP 97.4–98.9; O2SAT 87–94
[2024-04-06 04:55] LABS: BASO % 0.2 % (0.0-1.0); EOS % 0.2 % (0.0-3.0); HEMATOCRIT 27.7 % (36.0-47.0); HEMOGLOBIN 9.1 g/dl (12.0-15.5); LYMPH # 1.5 10^3/uL (1.5-5.0); LYMPH % 18.7 % (24.0-44.0); MEAN CORPUSCULAR HEMOGLOBIN 29.9 pg (27.0-33.0); MEAN CORPUSCULAR HGB CONC 32.9 g/dl (32.0-36.5); MEAN CORPUSCULAR VOLUME 91.1 fl (80.0-96.0); MONO # 0.7 10^3/uL (0.0-0.8); MONO % 8.5 % (2.0-8.0); NEUTROPHILS # 5.9 10^3/uL (1.5-8.5); NEUTROPHILS % 71.7 % (36.0-66.0); PLATELET COUNT, AUTOMATED 224 10^3/uL (150-450); RED BLOOD COUNT 3.04 10^6/uL (4.00-5.40); WHITE BLOOD COUNT 8.2 10^3/uL (4.0-10.0)
[2024-04-06 05:16] LABS: BLOOD UREA NITROGEN 13 MG/DL (9-23); CALCIUM LEVEL 8.1 MG/DL (8.3-10.6); CARBON DIOXIDE LEVEL 29 MMOL/L (20-31); CHLORIDE LEVEL 102 MMOL/L (98-107); CREATININE FOR GFR 0.76 MG/DL (0.55-1.30); GLOMERULAR FILTRATION RATE > 60.0 (>32); GLUCOSE, FASTING 82 MG/DL (74-106); MAGNESIUM LEVEL 1.6 MG/DL (1.8-2.4); POTASSIUM SERUM 3.3 MMOL/L (3.5-5.1); SODIUM LEVEL 136 MMOL/L (136-145)
[2024-04-06] MEDS: POTASSIUM CHLORIDE 10MEQ SR TABLET PO SCH ×2 (09:17→12:37)
[2024-04-06] MEDS: MAG SULF 1GM/100ML (MAG RUN) 1 GM in IV 1 EA IV SCH (09:19)
[2024-04-06] MEDS ORDERED: FUROSEMIDE 40MG/4ML VIAL IV SCH (17:00)
[2024-04-07] VITALS (22 sets, daily range): BP systolic 104–118; BP diastolic 51–57; TEMP 97–98.3; O2SAT 86–95
[2024-04-07 05:50] LABS: HEMATOCRIT 27.8 % (36.0-47.0); HEMOGLOBIN 8.9 g/dl (12.0-15.5); MEAN CORPUSCULAR HEMOGLOBIN 29.4 pg (27.0-33.0); MEAN CORPUSCULAR VOLUME 91.7 fl (80.0-96.0); PLATELET COUNT, AUTOMATED 248 10^3/uL (150-450); RED BLOOD COUNT 3.03 10^6/uL (4.00-5.40); WHITE BLOOD COUNT 7.6 10^3/uL (4.0-10.0)
[2024-04-07 06:15] LABS: BLOOD UREA NITROGEN 14 MG/DL (9-23); CALCIUM LEVEL 8.3 MG/DL (8.3-10.6); CARBON DIOXIDE LEVEL 30 MMOL/L (20-31); CHLORIDE LEVEL 101 MMOL/L (98-107); CREATININE FOR GFR 0.81 MG/DL (0.55-1.30); GLOMERULAR FILTRATION RATE > 60.0 (>32); GLUCOSE, FASTING 80 MG/DL (74-106); POTASSIUM SERUM 4.6 MMOL/L (3.5-5.1); SODIUM LEVEL 135 MMOL/L (136-145)
[2024-04-07] MEDS: TORSEMIDE 20 MG TAB PO SCH (08:28)
[2024-04-07] MEDS: LIDOCAINE 5% (LIDODERM) PATCH TD ONE (21:25)
[2024-04-08] VITALS: BP 110/54; TEMP 97.6; O2SAT 92
[2024-04-08 04:00] VITALS: BP 106/54; TEMP 96.7; O2SAT 95
[2024-04-08 05:35] LABS: HEMATOCRIT 26.9 % (36.0-47.0); HEMOGLOBIN 8.7 g/dl (12.0-15.5); MEAN CORPUSCULAR HGB CONC 32.3 g/dl (32.0-36.5); MEAN CORPUSCULAR VOLUME 92.8 fl (80.0-96.0); PLATELET COUNT, AUTOMATED 237 10^3/uL (150-450); WHITE BLOOD COUNT 6.3 10^3/uL (4.0-10.0)
[2024-04-08 05:59] LABS: BLOOD UREA NITROGEN 16 MG/DL (9-23); CALCIUM LEVEL 8.4 MG/DL (8.3-10.6); CARBON DIOXIDE LEVEL 30 MMOL/L (20-31); CHLORIDE LEVEL 102 MMOL/L (98-107); CREATININE FOR GFR 0.85 MG/DL (0.55-1.30); GLOMERULAR FILTRATION RATE > 60.0 (>32); GLUCOSE, FASTING 82 MG/DL (74-106); POTASSIUM SERUM 4.6 MMOL/L (3.5-5.1); SODIUM LEVEL 135 MMOL/L (136-145)
[2024-04-08 07:32] VITALS: BP 112/54; TEMP 97; O2SAT 92
[2024-04-08 11:40] VITALS: BP 110/54; TEMP 97.4; O2SAT 94
[2024-04-08 15:02] LABS: PERCENT SATURATION 30.6 % (13.2-45.0)
[2024-04-08 15:05] LABS: FERRITIN 200.3 NG/ML (7.3-270.7)
[2024-04-08 16:32] VITALS: BP 116/58; TEMP 98.1; O2SAT 91
[2024-04-08] MEDS: IPRATROPIUM 0.5MG/ALBUTEROL 2.5MG INH SOL UD 3ML (DUONEB) NEB SCH (19:41)
[2024-04-08 20:00] VITALS: BP 106/55; TEMP 96.4; O2SAT 91
[2024-04-09] VITALS (8 sets, daily range): BP systolic 99–130; BP diastolic 50–60; TEMP 96.8–98.9; O2SAT 87–93
[2024-04-09 05:54] LABS: HEMATOCRIT 30.1 % (36.0-47.0); HEMOGLOBIN 9.7 g/dl (12.0-15.5); MEAN CORPUSCULAR HGB CONC 32.2 g/dl (32.0-36.5); MEAN CORPUSCULAR VOLUME 93.2 fl (80.0-96.0); PLATELET COUNT, AUTOMATED 258 10^3/uL (150-450); RED BLOOD COUNT 3.23 10^6/uL (4.00-5.40); WHITE BLOOD COUNT 6.2 10^3/uL (4.0-10.0)
[2024-04-09] MEDS ORDERED: ALBUTEROL SULFATE 2.5MG/0.5ML INH NEB SOLN NEB PRN (06:00)
[2024-04-09 06:15] LABS: BLOOD UREA NITROGEN 17 MG/DL (9-23); CALCIUM LEVEL 8.5 MG/DL (8.3-10.6); CARBON DIOXIDE LEVEL 29 MMOL/L (20-31); CHLORIDE LEVEL 100 MMOL/L (98-107); CREATININE FOR GFR 0.79 MG/DL (0.55-1.30); GLOMERULAR FILTRATION RATE > 60.0 (>32); GLUCOSE, FASTING 77 MG/DL (74-106); POTASSIUM SERUM 4.8 MMOL/L (3.5-5.1); SODIUM LEVEL 135 MMOL/L (136-145)
[2024-04-09] MEDS: ALBUTEROL SULFATE 2.5MG/0.5ML INH NEB SOLN NEB PRN (06:23)
[2024-04-09] MEDS: SALIVA SUBSTITUTE(MOUTHKOTE) BTL MT PRN (16:50)
[2024-04-09 20:34] LABS: ABG BASE EXCESS 3.4 (-2.0-2.0); ABG HCO3 25.7 MMOL/L (22.0-26.0); ABG O2 SATURATION 95.4 % (95.0-99.0); ABG PARTIAL PRESSURE CO2 30.9 mmHg (35.0-45.0); ABG PARTIAL PRESSURE O2 72.4 mmHg (75.0-100.0); ABG STANDARD HCO3 27.5 MMOL/L. (22.0-26.0); ABG TOTAL CO2 26.7 MMOL/L (23.0-31.0); ABG pH (ARTERIAL) 7.538 UNITS (7.350-7.450)
[2024-04-09] MEDS: SODIUM CHLORIDE NASAL 0.65% SPRAY BTL (OCEAN) PRN (22:11)
[2024-04-10] VITALS (15 sets, daily range): BP systolic 113–134; BP diastolic 54–63; TEMP 98.2–99.4; O2SAT 90–100
[2024-04-10 05:41] LABS: BASO % 0.3 % (0.0-1.0); EOS % 0.3 % (0.0-3.0); HEMATOCRIT 30.1 % (36.0-47.0); HEMOGLOBIN 9.7 g/dl (12.0-15.5); LYMPH # 0.9 10^3/uL (1.5-5.0); LYMPH % 15.7 % (24.0-44.0); MEAN CORPUSCULAR HEMOGLOBIN 30.3 pg (27.0-33.0); MEAN CORPUSCULAR HGB CONC 32.2 g/dl (32.0-36.5); MEAN CORPUSCULAR VOLUME 94.1 fl (80.0-96.0); MONO # 0.7 10^3/uL (0.0-0.8); MONO % 11.3 % (2.0-8.0); NEUTROPHILS % 70.3 % (36.0-66.0); PLATELET COUNT, AUTOMATED 271 10^3/uL (150-450); WHITE BLOOD COUNT 5.7 10^3/uL (4.0-10.0)
[2024-04-10 06:02] LABS: ALBUMIN 1.9 G/DL (3.2-5.2); ALKALINE PHOSPHATASE 89 U/L (46-116); ALT/SGPT 10 U/L (7.0-40); AST/SGOT 26 U/L (<34); BILIRUBIN,TOTAL 0.6 MG/DL (0.3-1.2); BLOOD UREA NITROGEN 15 MG/DL (9-23); CALCIUM LEVEL 8.7 MG/DL (8.3-10.6); CARBON DIOXIDE LEVEL 27 MMOL/L (20-31); CHLORIDE LEVEL 101 MMOL/L (98-107); CREATININE FOR GFR 0.76 MG/DL (0.55-1.30); GLOMERULAR FILTRATION RATE > 60.0 (>32); GLUCOSE, FASTING 80 MG/DL (74-106); POTASSIUM SERUM 4.4 MMOL/L (3.5-5.1); SODIUM LEVEL 132 MMOL/L (136-145); TOTAL PROTEIN 6.1 G/DL (5.7-8.2)
[2024-04-10] MEDS: POTASSIUM CHLORIDE 10% LIQ 20MEQ/15ML UDC PO SCH (20:52)
[2024-04-10] MEDS: MORPHINE 2 MG/ML 1ML VIAL IV PRN (21:07)
[2024-04-11] VITALS (28 sets, daily range): BP systolic 105–123; BP diastolic 56–59; TEMP 97.9–98.2; O2SAT 87–95
[2024-04-11] MEDS: TORSEMIDE 20 MG TAB PO SCH (09:02)
[2024-04-11 10:10] LABS: BLOOD UREA NITROGEN 14 MG/DL (9-23); CALCIUM LEVEL 8.8 MG/DL (8.3-10.6); CARBON DIOXIDE LEVEL 27 MMOL/L (20-31); CHLORIDE LEVEL 102 MMOL/L (98-107); CREATININE FOR GFR 0.75 MG/DL (0.55-1.30); GLOMERULAR FILTRATION RATE > 60.0 (>32); GLUCOSE, FASTING 84 MG/DL (74-106); MAGNESIUM LEVEL 1.8 MG/DL (1.8-2.4); PHOSPHORUS LEVEL 3.1 MG/DL (2.4-5.1); POTASSIUM SERUM 4.2 MMOL/L (3.5-5.1); SODIUM LEVEL 134 MMOL/L (136-145)
[2024-04-11 10:12] LABS: FREE T4 0.95 NG/DL (0.89-1.76)
[2024-04-11 10:13] LABS: THYROID STIMULATING HORMONE 9.645 uIU/ML (0.55-4.78)
[2024-04-11] MEDS ORDERED: VARIBAR PUDDING 40% w/v 230ML TUBE As Ordered ONE (11:31)
[2024-04-11] MEDS ORDERED: VARIBAR NECTAR 40% w/v 240ML SUSP BTL As Ordered ONE (11:32)
[2024-04-11] MEDS ORDERED: E-Z-PAQUE 96% w/w SUSP 176GM BTL As Ordered ONE (11:32)
[2024-04-11] MEDS ORDERED: BARIUM SULFATE 700 MG TABLET (E-Z-DISK) As Ordered ONE (11:32)
[2024-04-11] MEDS: PANTOPRAZOLE 40MG VIAL IV SCH (21:42)
[2024-04-12] VITALS (27 sets, daily range): BP systolic 100–120; BP diastolic 51–60; TEMP 97.2–98; O2SAT 84–96
[2024-04-12 06:44] LABS: BASO % 0.3 % (0.0-1.0); EOS % 0.2 % (0.0-3.0); HEMATOCRIT 30.4 % (36.0-47.0); HEMOGLOBIN 9.9 g/dl (12.0-15.5); LYMPH # 1.1 10^3/uL (1.5-5.0); LYMPH % 17.1 % (24.0-44.0); MEAN CORPUSCULAR HEMOGLOBIN 30.1 pg (27.0-33.0); MEAN CORPUSCULAR HGB CONC 32.6 g/dl (32.0-36.5); MEAN CORPUSCULAR VOLUME 92.4 fl (80.0-96.0); MONO # 0.6 10^3/uL (0.0-0.8); MONO % 9.9 % (2.0-8.0); NEUTROPHILS # 4.5 10^3/uL (1.5-8.5); NEUTROPHILS % 71.4 % (36.0-66.0); PLATELET COUNT, AUTOMATED 324 10^3/uL (150-450); RED BLOOD COUNT 3.29 10^6/uL (4.00-5.40); WHITE BLOOD COUNT 6.3 10^3/uL (4.0-10.0)
[2024-04-12 07:03] LABS: BLOOD UREA NITROGEN 17 MG/DL (9-23); CALCIUM LEVEL 8.5 MG/DL (8.3-10.6); CARBON DIOXIDE LEVEL 28 MMOL/L (20-31); CHLORIDE LEVEL 100 MMOL/L (98-107); CREATININE FOR GFR 0.78 MG/DL (0.55-1.30); GLOMERULAR FILTRATION RATE > 60.0 (>32); GLUCOSE, FASTING 81 MG/DL (74-106); MAGNESIUM LEVEL 1.7 MG/DL (1.8-2.4); SODIUM LEVEL 135 MMOL/L (136-145)
[2024-04-12] MEDS: MAG SULF 1GM/100ML (MAG RUN) 1 GM in IV 1 EA IV ONE (09:08)
[2024-04-12 18:13] LABS: ABG BASE EXCESS 1.9 (-2.0-2.0); ABG HCO3 24.3 MMOL/L (22.0-26.0); ABG O2 SATURATION 88.2 % (95.0-99.0); ABG PARTIAL PRESSURE CO2 31.1 mmHg (35.0-45.0); ABG PARTIAL PRESSURE O2 52.5 mmHg (75.0-100.0); ABG STANDARD HCO3 25.9 MMOL/L. (22.0-26.0); ABG TOTAL CO2 25.3 MMOL/L (23.0-31.0); ABG pH (ARTERIAL) 7.511 UNITS (7.350-7.450)
[2024-04-12] MEDS: methylPREDNISolone 125MG 2ML VIAL IV SCH (19:00)
[2024-04-12] MEDS: predniSONE 20 MG TAB PO ONE (22:25)
[2024-04-13] VITALS (23 sets, daily range): BP systolic 88–115; BP diastolic 50–67; TEMP 97.3–98.2; O2SAT 86–97
[2024-04-13 05:19] LABS: BASO % 0.3 % (0.0-1.0); EOS % 0.3 % (0.0-3.0); HEMATOCRIT 31.6 % (36.0-47.0); HEMOGLOBIN 10.3 g/dl (12.0-15.5); LYMPH # 1.1 10^3/uL (1.5-5.0); LYMPH % 15.9 % (24.0-44.0); MEAN CORPUSCULAR HEMOGLOBIN 30.3 pg (27.0-33.0); MEAN CORPUSCULAR HGB CONC 32.6 g/dl (32.0-36.5); MEAN CORPUSCULAR VOLUME 92.9 fl (80.0-96.0); MONO # 0.6 10^3/uL (0.0-0.8); MONO % 8.9 % (2.0-8.0); NEUTROPHILS # 5.1 10^3/uL (1.5-8.5); NEUTROPHILS % 73.5 % (36.0-66.0); PLATELET COUNT, AUTOMATED 345 10^3/uL (150-450)
[2024-04-13 05:29] LABS: ERYTHROCYTE SEDIMENTATION RATE 64 mm/hr (0-30)
[2024-04-13 05:50] LABS: ALBUMIN 2.2 G/DL (3.2-5.2); ALKALINE PHOSPHATASE 95 U/L (46-116); ALT/SGPT 10 U/L (7.0-40); AST/SGOT 26 U/L (<34); BILIRUBIN,TOTAL 0.6 MG/DL (0.3-1.2); BLOOD UREA NITROGEN 18 MG/DL (9-23); CALCIUM LEVEL 8.7 MG/DL (8.3-10.6); CARBON DIOXIDE LEVEL 30 MMOL/L (20-31); CHLORIDE LEVEL 100 MMOL/L (98-107); CREATININE FOR GFR 0.88 MG/DL (0.55-1.30); GLOMERULAR FILTRATION RATE > 60.0 (>32); GLUCOSE, FASTING 87 MG/DL (74-106); MAGNESIUM LEVEL 1.9 MG/DL (1.8-2.4); PHOSPHORUS LEVEL 3.8 MG/DL (2.4-5.1); POTASSIUM SERUM 3.8 MMOL/L (3.5-5.1); SODIUM LEVEL 135 MMOL/L (136-145); TOTAL PROTEIN 6.7 G/DL (5.7-8.2)
[2024-04-13] MEDS: PANTOPRAZOLE 40MG VIAL IV SCH (10:10)
[2024-04-14] VITALS (21 sets, daily range): BP systolic 97–116; BP diastolic 51–58; TEMP 97.4–98.8; O2SAT 86–96
[2024-04-14 05:17] LABS: ALBUMIN 2.2 G/DL (3.2-5.2); ALKALINE PHOSPHATASE 91 U/L (46-116); ALT/SGPT 9 U/L (7.0-40); AST/SGOT 23 U/L (<34); BILIRUBIN,TOTAL 0.5 MG/DL (0.3-1.2); BLOOD UREA NITROGEN 20 MG/DL (9-23); CALCIUM LEVEL 8.5 MG/DL (8.3-10.6); CARBON DIOXIDE LEVEL 30 MMOL/L (20-31); CHLORIDE LEVEL 99 MMOL/L (98-107); CREATININE FOR GFR 0.89 MG/DL (0.55-1.30); GLOMERULAR FILTRATION RATE > 60.0 (>32); GLUCOSE, FASTING 88 MG/DL (74-106); MAGNESIUM LEVEL 1.7 MG/DL (1.8-2.4); PHOSPHORUS LEVEL 2.9 MG/DL (2.4-5.1); POTASSIUM SERUM 3.7 MMOL/L (3.5-5.1); SODIUM LEVEL 134 MMOL/L (136-145); TOTAL PROTEIN 6.6 G/DL (5.7-8.2)
[2024-04-14] MEDS ORDERED: TORSEMIDE 20 MG TAB PO SCH ×2 (09:00)
[2024-04-14] MEDS: methylPREDNISolone 125MG 2ML VIAL IV SCH (09:18)
[2024-04-14] MEDS: MAGNESIUM GLUCONATE 500 MG TAB PO ONE (09:18)
[2024-04-14] MEDS: MAG SULF 1GM/100ML (MAG RUN) 1 GM in IV 1 EA IV ONE (09:19)
[2024-04-14] MEDS: TORSEMIDE 20 MG TAB PO SCH (11:47)
[2024-04-14] MEDS: SODIUM CHLORIDE 0.9% INJ 10 ML SYR IV SCH (18:48)
[2024-04-15] VITALS (13 sets, daily range): BP systolic 95–124; BP diastolic 52–63; TEMP 97–98.4; O2SAT 91–95
[2024-04-15 04:49] LABS: ALBUMIN 2.3 G/DL (3.2-5.2); ALKALINE PHOSPHATASE 86 U/L (46-116); ALT/SGPT < 9 U/L (7.0-40); AST/SGOT 19 U/L (<34); BILIRUBIN,TOTAL 0.4 MG/DL (0.3-1.2); BLOOD UREA NITROGEN 21 MG/DL (9-23); CALCIUM LEVEL 8.8 MG/DL (8.3-10.6); CARBON DIOXIDE LEVEL 30 MMOL/L (20-31); CHLORIDE LEVEL 98 MMOL/L (98-107); CREATININE FOR GFR 0.82 MG/DL (0.55-1.30); GLOMERULAR FILTRATION RATE > 60.0 (>32); GLUCOSE, FASTING 90 MG/DL (74-106); MAGNESIUM LEVEL 1.8 MG/DL (1.8-2.4); PHOSPHORUS LEVEL 2.6 MG/DL (2.4-5.1); POTASSIUM SERUM 3.7 MMOL/L (3.5-5.1); SODIUM LEVEL 134 MMOL/L (136-145); TOTAL PROTEIN 6.7 G/DL (5.7-8.2)
[2024-04-16] VITALS (15 sets, daily range): BP systolic 99–122; BP diastolic 52–67; TEMP 97.1–98.5; O2SAT 79–95
[2024-04-16 05:52] LABS: BLOOD UREA NITROGEN 23 MG/DL (9-23); CARBON DIOXIDE LEVEL 31 MMOL/L (20-31); CHLORIDE LEVEL 101 MMOL/L (98-107); CREATININE FOR GFR 0.79 MG/DL (0.55-1.30); GLOMERULAR FILTRATION RATE > 60.0 (>32); GLUCOSE, FASTING 93 MG/DL (74-106); POTASSIUM SERUM 3.8 MMOL/L (3.5-5.1); SODIUM LEVEL 135 MMOL/L (136-145)
[2024-04-16] MEDS: predniSONE 20 MG TAB PO SCH (16:53)
[2024-04-17] VITALS (11 sets, daily range): BP systolic 108–145; BP diastolic 52–64; TEMP 97.2–98.2; O2SAT 89–96
[2024-04-17 03:38] LABS: BASO % 0.1 % (0.0-1.0); HEMATOCRIT 30.1 % (36.0-47.0); HEMOGLOBIN 9.7 g/dl (12.0-15.5); LYMPH # 0.7 10^3/uL (1.5-5.0); LYMPH % 10.8 % (24.0-44.0); MEAN CORPUSCULAR HEMOGLOBIN 30.6 pg (27.0-33.0); MEAN CORPUSCULAR HGB CONC 32.2 g/dl (32.0-36.5); MONO # 0.3 10^3/uL (0.0-0.8); MONO % 4.8 % (2.0-8.0); NEUTROPHILS # 5.6 10^3/uL (1.5-8.5); NEUTROPHILS % 83.4 % (36.0-66.0); PLATELET COUNT, AUTOMATED 317 10^3/uL (150-450); RED BLOOD COUNT 3.17 10^6/uL (4.00-5.40); WHITE BLOOD COUNT 6.7 10^3/uL (4.0-10.0)
[2024-04-17 04:07] LABS: BLOOD UREA NITROGEN 20 MG/DL (9-23); CALCIUM LEVEL 8.6 MG/DL (8.3-10.6); CARBON DIOXIDE LEVEL 29 MMOL/L (20-31); CHLORIDE LEVEL 101 MMOL/L (98-107); CREATININE FOR GFR 0.79 MG/DL (0.55-1.30); GLOMERULAR FILTRATION RATE > 60.0 (>32); GLUCOSE, FASTING 117 MG/DL (74-106); MAGNESIUM LEVEL 1.6 MG/DL (1.8-2.4); POTASSIUM SERUM 4.2 MMOL/L (3.5-5.1); SODIUM LEVEL 135 MMOL/L (136-145)
[2024-04-17] MEDS: MAG SULF 1GM/100ML (MAG RUN) 1 GM in IV 1 EA IV ONE (04:41)
[2024-04-17 07:14] LABS: ABG BASE EXCESS 2.9 (-2.0-2.0); ABG HCO3 25.1 MMOL/L (22.0-26.0); ABG O2 SATURATION 88.3 % (95.0-99.0); ABG PARTIAL PRESSURE CO2 30.7 mmHg (35.0-45.0); ABG PARTIAL PRESSURE O2 51.9 mmHg (75.0-100.0); ABG STANDARD HCO3 26.9 MMOL/L. (22.0-26.0); ABG TOTAL CO2 26.1 MMOL/L (23.0-31.0); ABG pH (ARTERIAL) 7.531 UNITS (7.350-7.450)
[2024-04-17] MEDS: MAG SULF 1GM/100ML (MAG RUN) 1 GM in IV 1 EA IV SCH (08:52)
[2024-04-18] VITALS (19 sets, daily range): BP systolic 105–121; BP diastolic 52–58; TEMP 97–98; O2SAT 87–96
[2024-04-18 06:34] LABS: BASO % 0.4 % (0.0-1.0); EOS # 0.1 10^3/uL (0.0-0.5); EOS % 1.2 % (0.0-3.0); HEMATOCRIT 32.3 % (36.0-47.0); HEMOGLOBIN 10.2 g/dl (12.0-15.5); LYMPH # 1.5 10^3/uL (1.5-5.0); LYMPH % 19.8 % (24.0-44.0); MEAN CORPUSCULAR HEMOGLOBIN 30.3 pg (27.0-33.0); MEAN CORPUSCULAR HGB CONC 31.6 g/dl (32.0-36.5); MEAN CORPUSCULAR VOLUME 95.8 fl (80.0-96.0); MONO # 0.7 10^3/uL (0.0-0.8); MONO % 9.2 % (2.0-8.0); NEUTROPHILS # 5.2 10^3/uL (1.5-8.5); NEUTROPHILS % 68.2 % (36.0-66.0); PLATELET COUNT, AUTOMATED 356 10^3/uL (150-450); RED BLOOD COUNT 3.37 10^6/uL (4.00-5.40); WHITE BLOOD COUNT 7.6 10^3/uL (4.0-10.0)
[2024-04-18 06:49] LABS: BLOOD UREA NITROGEN 27 MG/DL (9-23); CALCIUM LEVEL 9.1 MG/DL (8.3-10.6); CARBON DIOXIDE LEVEL 29 MMOL/L (20-31); CHLORIDE LEVEL 100 MMOL/L (98-107); CREATININE FOR GFR 0.74 MG/DL (0.55-1.30); GLOMERULAR FILTRATION RATE > 60.0 (>32); GLUCOSE, FASTING 85 MG/DL (74-106); POTASSIUM SERUM 4.2 MMOL/L (3.5-5.1); SODIUM LEVEL 135 MMOL/L (136-145)
[2024-04-18] MEDS ORDERED: TREPROSTINIL IH ONE ×2 (14:02→15:00)
[2024-04-18 15:10] LABS: MAGNESIUM LEVEL 2.1 MG/DL (1.8-2.4)
[2024-04-19] VITALS (27 sets, daily range): BP systolic 104–127; BP diastolic 55–60; TEMP 97.1–98.6; O2SAT 87–97
[2024-04-19 05:26] LABS: BASO % 0.6 % (0.0-1.0); EOS # 0.1 10^3/uL (0.0-0.5); EOS % 1.2 % (0.0-3.0); HEMATOCRIT 32.9 % (36.0-47.0); HEMOGLOBIN 10.3 g/dl (12.0-15.5); LYMPH # 1.7 10^3/uL (1.5-5.0); MEAN CORPUSCULAR HGB CONC 31.3 g/dl (32.0-36.5); MEAN CORPUSCULAR VOLUME 95.9 fl (80.0-96.0); MONO # 0.8 10^3/uL (0.0-0.8); MONO % 11.5 % (2.0-8.0); NEUTROPHILS # 4.2 10^3/uL (1.5-8.5); NEUTROPHILS % 60.5 % (36.0-66.0); PLATELET COUNT, AUTOMATED 336 10^3/uL (150-450); RED BLOOD COUNT 3.43 10^6/uL (4.00-5.40)
[2024-04-19 05:48] LABS: BLOOD UREA NITROGEN 24 MG/DL (9-23); CALCIUM LEVEL 9.3 MG/DL (8.3-10.6); CARBON DIOXIDE LEVEL 30 MMOL/L (20-31); CHLORIDE LEVEL 100 MMOL/L (98-107); CREATININE FOR GFR 0.85 MG/DL (0.55-1.30); GLOMERULAR FILTRATION RATE > 60.0 (>32); GLUCOSE, FASTING 81 MG/DL (74-106); MAGNESIUM LEVEL 1.9 MG/DL (1.8-2.4); SODIUM LEVEL 134 MMOL/L (136-145)
[2024-04-19] MEDS: TREPROSTINIL IH SCH (07:27)
[2024-04-20] VITALS (29 sets, daily range): BP systolic 107–133; BP diastolic 55–60; TEMP 97–97.7; O2SAT 90–97
[2024-04-20 05:58] LABS: BASO % 0.4 % (0.0-1.0); EOS # 0.1 10^3/uL (0.0-0.5); EOS % 1.2 % (0.0-3.0); HEMATOCRIT 31.9 % (36.0-47.0); HEMOGLOBIN 10.3 g/dl (12.0-15.5); LYMPH # 1.9 10^3/uL (1.5-5.0); LYMPH % 26.1 % (24.0-44.0); MEAN CORPUSCULAR HEMOGLOBIN 30.6 pg (27.0-33.0); MEAN CORPUSCULAR HGB CONC 32.3 g/dl (32.0-36.5); MEAN CORPUSCULAR VOLUME 94.7 fl (80.0-96.0); MONO # 0.8 10^3/uL (0.0-0.8); MONO % 11.5 % (2.0-8.0); NEUTROPHILS # 4.3 10^3/uL (1.5-8.5); NEUTROPHILS % 59.8 % (36.0-66.0); PLATELET COUNT, AUTOMATED 334 10^3/uL (150-450); RED BLOOD COUNT 3.37 10^6/uL (4.00-5.40); WHITE BLOOD COUNT 7.2 10^3/uL (4.0-10.0)
[2024-04-20 06:21] LABS: BLOOD UREA NITROGEN 24 MG/DL (9-23); CARBON DIOXIDE LEVEL 29 MMOL/L (20-31); CHLORIDE LEVEL 101 MMOL/L (98-107); CREATININE FOR GFR 0.86 MG/DL (0.55-1.30); GLOMERULAR FILTRATION RATE > 60.0 (>32); GLUCOSE, FASTING 80 MG/DL (74-106); POTASSIUM SERUM 3.7 MMOL/L (3.5-5.1); SODIUM LEVEL 136 MMOL/L (136-145)
[2024-04-20] MEDS: IPRATROPIUM 0.5MG/ALBUTEROL 2.5MG INH SOL UD 3ML (DUONEB) NEB SCH (08:38)
[2024-04-20] MEDS ORDERED: TREPROSTINIL IH SCH (08:38)
[2024-04-20] MEDS: TREPROSTINIL IH SCH (08:40)
[2024-04-21] VITALS (17 sets, daily range): BP systolic 108–132; BP diastolic 56–66; TEMP 96.5–97.8; O2SAT 89–95
[2024-04-21 06:41] LABS: BLOOD UREA NITROGEN 22 MG/DL (9-23); CALCIUM LEVEL 9.2 MG/DL (8.3-10.6); CARBON DIOXIDE LEVEL 28 MMOL/L (20-31); CHLORIDE LEVEL 101 MMOL/L (98-107); CREATININE FOR GFR 0.87 MG/DL (0.55-1.30); GLOMERULAR FILTRATION RATE > 60.0 (>32); GLUCOSE, FASTING 81 MG/DL (74-106); MAGNESIUM LEVEL 1.8 MG/DL (1.8-2.4); POTASSIUM SERUM 3.8 MMOL/L (3.5-5.1); SODIUM LEVEL 136 MMOL/L (136-145)
[2024-04-21] MEDS: TREPROSTINIL IH SCH (08:34)
[2024-04-22] VITALS (20 sets, daily range): BP systolic 94–116; BP diastolic 54–58; TEMP 97.3–98.1; O2SAT 87–94
[2024-04-22 06:07] LABS: BASO # 0.1 10^3/uL (0.0-0.2); BASO % 0.7 % (0.0-1.0); EOS # 0.1 10^3/uL (0.0-0.5); EOS % 1.2 % (0.0-3.0); HEMATOCRIT 32.9 % (36.0-47.0); HEMOGLOBIN 10.4 g/dl (12.0-15.5); LYMPH # 1.8 10^3/uL (1.5-5.0); LYMPH % 26.4 % (24.0-44.0); MEAN CORPUSCULAR HEMOGLOBIN 30.1 pg (27.0-33.0); MEAN CORPUSCULAR HGB CONC 31.6 g/dl (32.0-36.5); MEAN CORPUSCULAR VOLUME 95.1 fl (80.0-96.0); MONO # 0.8 10^3/uL (0.0-0.8); MONO % 11.5 % (2.0-8.0); NEUTROPHILS % 58.9 % (36.0-66.0); PLATELET COUNT, AUTOMATED 286 10^3/uL (150-450); RED BLOOD COUNT 3.46 10^6/uL (4.00-5.40); WHITE BLOOD COUNT 6.8 10^3/uL (4.0-10.0)
[2024-04-22 06:29] LABS: BLOOD UREA NITROGEN 21 MG/DL (9-23); CALCIUM LEVEL 9.1 MG/DL (8.3-10.6); CARBON DIOXIDE LEVEL 28 MMOL/L (20-31); CHLORIDE LEVEL 101 MMOL/L (98-107); CREATININE FOR GFR 0.88 MG/DL (0.55-1.30); GLOMERULAR FILTRATION RATE > 60.0 (>32); GLUCOSE, FASTING 81 MG/DL (74-106); MAGNESIUM LEVEL 1.8 MG/DL (1.8-2.4); POTASSIUM SERUM 3.6 MMOL/L (3.5-5.1); SODIUM LEVEL 135 MMOL/L (136-145)
[2024-04-22] MEDS: SODIUM CHLORIDE 0.9% INJ 10 ML SYR IV PRN (10:03)
[2024-04-23] VITALS (23 sets, daily range): BP systolic 100–128; BP diastolic 51–59; TEMP 96.6–98.6; O2SAT 82–94
[2024-04-23] MEDS: TREPROSTINIL IH SCH (07:43)
[2024-04-23] MEDS: MAGNESIUM OXIDE 400MG TAB (MAG-OX) PO ONE (09:18)
[2024-04-23] MEDS ORDERED: MAGN400T2 PO (16:29)
[2024-04-23] MEDS ORDERED: TYVA0.6S IH (16:29)
[2024-04-23] MEDS ORDERED: PRED20TA PO (16:29)
[2024-04-23] MEDS ORDERED: MAGNESIUM OXIDE 400MG TAB (MAG-OX) PO SCH (21:00)
== END 2024-04-23 18:16 | DRG 480 ==
LOC: M ED 10:28 → EDBD 10:28 → M ED INP 16:24 → M MSPAV 18:04 → M PCU 04-02 20:39 → M ICU 04-12 16:36 → M PCU 04-17 15:05
PROVIDERS: ADMIT Hospitalist; ATTEND Student in an Organized Health Care Education/Training Program
PROC: 0QS704Z Reposition Left Upper Femur with Internal Fixation Device, Open Approach (ICD-10-PCS; principal; 2024-04-01 12:00)
DX: M97.8XXA Periprosthetic fracture around other internal prosthetic joint, initial encounter (principal); J96.01 Acute respiratory failure with hypoxia; I26.09 Other pulmonary embolism with acute cor pulmonale; J69.0 Pneumonitis due to inhalation of food and vomit; I42.0 Dilated cardiomyopathy; J98.11 Atelectasis; D62 Acute posthemorrhagic anemia; G62.81 Critical illness polyneuropathy; Z96.642 Presence of left artificial hip joint; I27.20 Pulmonary hypertension, unspecified; M34.1 CR(E)ST syndrome; K21.9 Gastro-esophageal reflux disease without esophagitis; I95.9 Hypotension, unspecified; I50.9 Heart failure, unspecified; I11.0 Hypertensive heart disease with heart failure; R13.12 Dysphagia, oropharyngeal phase; E83.42 Hypomagnesemia; M06.9 Rheumatoid arthritis, unspecified; G40.909 Epilepsy, unspecified, not intractable, without status epilepticus; Z88.5 Allergy status to narcotic agent; Z79.899 Other long term (current) drug therapy; M51.36 Other intervertebral disc degeneration, lumbar region; Z96.653 Presence of artificial knee joint, bilateral; K22.2 Esophageal obstruction; Z95.2 Presence of prosthetic heart valve

== ENCOUNTER 2024-04-23 17:19 | Inpatient (IN) | payer MEDICARE, MEDICAID ==
[~2024-04-23] VITALS: Ht 154.9 cm; Wt 69.5 kg
[~2024-04-23 17:19] MED LIST changes: +ADCI20TA PO; +LETA1TAB PO; +MAGN400T2 PO; +PHEN60TA9 PO; +PRED20TA PO; +SPIR-10 PO; +TORS10TA3 PO; +TORS20TA2 PO; +TYVA0.6S IH
[2024-04-23] MEDS ORDERED: MIRALAX *UNIT DOSE* 17GM PACKET PO PRN (17:25)
[2024-04-23] MEDS ORDERED: ALBUTEROL SULFATE 2.5MG/0.5ML INH NEB SOLN NEB PRN (17:40)
[2024-04-23] MEDS ORDERED: SODIUM CHLORIDE 0.9% INJ 10 ML SYR IV PRN (17:40)
[2024-04-23] MEDS: SODIUM CHLORIDE 0.9% INJ 10 ML SYR IV SCH (18:00)
[2024-04-23 18:20] VITALS: BP 123/58; TEMP 97.8; O2SAT 90
[2024-04-23] MEDS: TREPROSTINIL IH SCH (20:05)
[2024-04-23] MEDS: IPRATROPIUM 0.5MG/ALBUTEROL 2.5MG INH SOL UD 3ML (DUONEB) NEB SCH (20:06)
[2024-04-23 20:21] VITALS: BP 129/59; TEMP 98.5; O2SAT 90
[2024-04-23] MEDS: HEPARIN SOD (PORCINE) 5000UNITS/ML 1ML VIAL/SYRINGE SC SCH (21:45)
[2024-04-23] MEDS: MAGNESIUM OXIDE 400MG TAB (MAG-OX) PO SCH (21:45)
[2024-04-23] MEDS: PHENobarbitaL 30 MG TAB PO SCH (21:45)
[2024-04-24 04:00] VITALS: BP 122/58; TEMP 97.5; O2SAT 91
[2024-04-24 06:19] LABS: ALBUMIN 2.6 G/DL (3.2-5.2); ALKALINE PHOSPHATASE 90 U/L (46-116); ALT/SGPT 11 U/L (7.0-40); AST/SGOT 15 U/L (<34); BILIRUBIN,TOTAL 0.4 MG/DL (0.3-1.2); BLOOD UREA NITROGEN 16 MG/DL (9-23); CALCIUM LEVEL 9.5 MG/DL (8.3-10.6); CARBON DIOXIDE LEVEL 28 MMOL/L (20-31); CHLORIDE LEVEL 103 MMOL/L (98-107); CREATININE FOR GFR 0.83 MG/DL (0.55-1.30); GLOMERULAR FILTRATION RATE > 60.0 (>32); GLUCOSE, FASTING 80 MG/DL (74-106); MAGNESIUM LEVEL 1.8 MG/DL (1.8-2.4); POTASSIUM SERUM 3.5 MMOL/L (3.5-5.1); SODIUM LEVEL 137 MMOL/L (136-145); TOTAL PROTEIN 6.5 G/DL (5.7-8.2)
[2024-04-24] MEDS ORDERED: PANTOPRAZOLE 40MG TAB (PROTONIX) PO SCH (09:00)
[2024-04-24] MEDS ORDERED: predniSONE 20 MG TAB PO SCH (09:00)
[2024-04-24] MEDS: TORSEMIDE 20 MG TAB PO SCH (09:26)
[2024-04-24] MEDS: predniSONE 10MG TAB PO SCH (09:27)
[2024-04-24] MEDS: SPIRONOLACTONE 12.5MG PER 1/2 TABLET PO SCH (09:27)
[2024-04-24] MEDS: TADALAFIL 20 MG PO SCH (09:28)
[2024-04-24 12:00] VITALS: BP 119/53; TEMP 98; O2SAT 92
[2024-04-24] MEDS: ACETAMINOPHEN 500 MG TAB PO PRN (18:00)
[2024-04-24 20:08] VITALS: BP 119/58; TEMP 97.9; O2SAT 89
[2024-04-25 04:19] VITALS: BP 100/51; TEMP 97.7; O2SAT 93
[2024-04-25] MEDS ORDERED: OMEPRAZOLE 20MG CAP PO SCH (09:00)
[2024-04-25] MEDS: OMEPRAZOLE/SODIUM BICARB 20-840MG 10ML ORAL SYRINGE PO SCH (09:59)
[2024-04-25 20:00] VITALS: BP 103/53; TEMP 97.4; O2SAT 88
[2024-04-25 21:30] VITALS: O2SAT 91
[2024-04-26 04:00] VITALS: BP 109/54; TEMP 98; O2SAT 91
[2024-04-26 05:59] LABS: HEMATOCRIT 31.7 % (36.0-47.0); HEMOGLOBIN 10.3 g/dl (12.0-15.5); MEAN CORPUSCULAR HEMOGLOBIN 30.9 pg (27.0-33.0); MEAN CORPUSCULAR HGB CONC 32.5 g/dl (32.0-36.5); MEAN CORPUSCULAR VOLUME 95.2 fl (80.0-96.0); PLATELET COUNT, AUTOMATED 235 10^3/uL (150-450); RED BLOOD COUNT 3.33 10^6/uL (4.00-5.40); WHITE BLOOD COUNT 8.4 10^3/uL (4.0-10.0)
[2024-04-26 06:22] LABS: BLOOD UREA NITROGEN 22 MG/DL (9-23); CALCIUM LEVEL 9.5 MG/DL (8.3-10.6); CARBON DIOXIDE LEVEL 26 MMOL/L (20-31); CHLORIDE LEVEL 102 MMOL/L (98-107); CREATININE FOR GFR 0.88 MG/DL (0.55-1.30); GLOMERULAR FILTRATION RATE > 60.0 (>32); GLUCOSE, FASTING 84 MG/DL (74-106); POTASSIUM SERUM 3.7 MMOL/L (3.5-5.1); SODIUM LEVEL 134 MMOL/L (136-145)
[2024-04-26 12:00] VITALS: BP 108/52; TEMP 98.2; O2SAT 85
[2024-04-26 12:32] VITALS: O2SAT 92
[2024-04-26 20:00] VITALS: BP 141/56; TEMP 97.4; O2SAT 92
[2024-04-27 04:00] VITALS: BP 101/49; TEMP 98.2; O2SAT 90
[2024-04-27] MEDS: TREPROSTINIL IH SCH (09:09)
[2024-04-27 12:00] VITALS: BP 103/54; TEMP 98.1; O2SAT 94
[2024-04-27 19:49] VITALS: BP 110/53; TEMP 96.7; O2SAT 84
[2024-04-27 20:20] VITALS: O2SAT 90
[2024-04-28 04:14] VITALS: BP 99/51; TEMP 97.8; O2SAT 92
[2024-04-28 11:19] LABS: HEMATOCRIT 38.4 % (36.0-47.0); HEMOGLOBIN 12.2 g/dl (12.0-15.5); MEAN CORPUSCULAR HGB CONC 31.8 g/dl (32.0-36.5); MEAN CORPUSCULAR VOLUME 97.5 fl (80.0-96.0); PLATELET COUNT, AUTOMATED 213 10^3/uL (150-450); RED BLOOD COUNT 3.94 10^6/uL (4.00-5.40); WHITE BLOOD COUNT 8.2 10^3/uL (4.0-10.0)
[2024-04-28 11:37] LABS: BLOOD UREA NITROGEN 23 MG/DL (9-23); CALCIUM LEVEL 9.5 MG/DL (8.3-10.6); CARBON DIOXIDE LEVEL 27 MMOL/L (20-31); CHLORIDE LEVEL 100 MMOL/L (98-107); CREATININE FOR GFR 0.93 MG/DL (0.55-1.30); GLOMERULAR FILTRATION RATE > 60.0 (>32); GLUCOSE, FASTING 91 MG/DL (74-106); MAGNESIUM LEVEL 2.1 MG/DL (1.8-2.4); POTASSIUM SERUM 4.6 MMOL/L (3.5-5.1); SODIUM LEVEL 135 MMOL/L (136-145)
[2024-04-28 12:00] VITALS: BP 106/52; TEMP 97.7; O2SAT 90
[2024-04-28 20:13] VITALS: BP 108/52; TEMP 98.1; O2SAT 87
[2024-04-29 04:45] VITALS: BP 103/51; TEMP 97.9; O2SAT 91
[2024-04-29 06:59] LABS: BLOOD UREA NITROGEN 25 MG/DL (9-23); CALCIUM LEVEL 9.1 MG/DL (8.3-10.6); CARBON DIOXIDE LEVEL 26 MMOL/L (20-31); CHLORIDE LEVEL 102 MMOL/L (98-107); GLOMERULAR FILTRATION RATE > 60.0 (>32); GLUCOSE, FASTING 87 MG/DL (74-106); SODIUM LEVEL 134 MMOL/L (136-145)
[2024-04-29 12:00] VITALS: BP 111/51; TEMP 98.1; O2SAT 85
[2024-04-29 20:00] VITALS: BP 98/50; TEMP 97.2; O2SAT 88
[2024-04-30 04:00] VITALS: BP 104/52; TEMP 98.4; O2SAT 91
[2024-04-30 07:05] LABS: BLOOD UREA NITROGEN 22 MG/DL (9-23); CALCIUM LEVEL 9.3 MG/DL (8.3-10.6); CARBON DIOXIDE LEVEL 28 MMOL/L (20-31); CHLORIDE LEVEL 105 MMOL/L (98-107); CREATININE FOR GFR 0.92 MG/DL (0.55-1.30); GLOMERULAR FILTRATION RATE > 60.0 (>32); GLUCOSE, FASTING 90 MG/DL (74-106); POTASSIUM SERUM 3.7 MMOL/L (3.5-5.1); SODIUM LEVEL 137 MMOL/L (136-145)
[2024-04-30] MEDS ORDERED: IPRA0.00 NEB (11:02)
[2024-04-30] MEDS ORDERED: PRED10TA2 PO (11:02)
[2024-04-30] MEDS ORDERED: TYVA0.6S IH (11:02)
[2024-04-30 12:00] VITALS: BP 123/59; TEMP 98.5; O2SAT 90
[2024-04-30] MEDS: TREPROSTINIL IH SCH (12:23)
== END 2024-04-30 12:45 | disposition home or self-care (01) | DRG 560 ==
LOC: M PM&R 18:27
PROVIDERS: ADMIT Student in an Organized Health Care Education/Training Program; ATTEND Student in an Organized Health Care Education/Training Program
DX: M97.8XXA Periprosthetic fracture around other internal prosthetic joint, initial encounter (principal); D62 Acute posthemorrhagic anemia; G40.909 Epilepsy, unspecified, not intractable, without status epilepticus; M06.9 Rheumatoid arthritis, unspecified; M19.90 Unspecified osteoarthritis, unspecified site; M34.1 CR(E)ST syndrome; I27.20 Pulmonary hypertension, unspecified; R13.12 Dysphagia, oropharyngeal phase; Z95.2 Presence of prosthetic heart valve; Z96.642 Presence of left artificial hip joint; Z96.652 Presence of left artificial knee joint; G89.18 Other acute postprocedural pain; R53.81 Other malaise; I27.81 Cor pulmonale (chronic); D63.8 Anemia in other chronic diseases classified elsewhere; Z79.899 Other long term (current) drug therapy

== ENCOUNTER → 2024-05-13 | Outpatient (REF) | payer MEDICARE, MEDICAID ==
[~2024-05-13] MED LIST changes: +IPRA0.00 NEB; +PRED10TA2 PO
== END ==
LOC: M LAB REF 16:30
PROVIDERS: ATTEND Family Medicine
DX: I27.20 Pulmonary hypertension, unspecified (principal)

== ENCOUNTER → 2024-05-23 | Outpatient (CLI) | payer MEDICARE, MEDICAID | LOC: M SOG 12:54 | PROVIDERS: ATTEND Orthopaedic Surgery | DX: M97.12XD Periprosthetic fracture around internal prosthetic left knee joint, subsequent encounter (principal); Z96.652 Presence of left artificial knee joint ==

== ENCOUNTER → 2024-06-10 | Outpatient (REF) | payer MEDICARE, MEDICAID ==
[2024-06-10 16:09] LABS: PERCENT SATURATION 13.2 % (13.2-45.0)
[2024-06-10 16:14] LABS: FERRITIN 49.6 NG/ML (7.3-270.7)
== END ==
LOC: M LAB REF 12:59
PROVIDERS: ATTEND Family Medicine
DX: D50.9 Iron deficiency anemia, unspecified (principal); I27.20 Pulmonary hypertension, unspecified

== ENCOUNTER → 2024-09-03 | Outpatient (CLI) | payer MEDICARE, MEDICAID | LOC: M CARPUL 10:04 | PROVIDERS: ATTEND Internal Medicine Critical Care Medicine | DX: I27.20 Pulmonary hypertension, unspecified (principal); I08.3 Combined rheumatic disorders of mitral, aortic and tricuspid valves ==

== ENCOUNTER → 2024-09-10 | Outpatient (REF) | payer MEDICARE, MEDICAID ==
[~2024-09-10] MED LIST changes: +AMBR10TA PO; +PHEN30TA46 PO
[2024-09-10 14:37] LABS: PERCENT SATURATION 22.2 % (13.2-45.0)
[2024-09-10 14:40] LABS: FERRITIN 38.1 NG/ML (7.3-270.7)
== END ==
LOC: M LAB REF 13:03
PROVIDERS: ATTEND Family Medicine
DX: D50.9 Iron deficiency anemia, unspecified (principal)

== ENCOUNTER → 2024-10-06 | Day surgery (SDC) | payer MEDICARE, MEDICAID ==
[~2024-10-06] VITALS: Ht 154.9 cm; Wt 61.2 kg
== END | disposition home or self-care (01) ==
LOC: M OPP 10:26
PROVIDERS: ATTEND Internal Medicine Gastroenterology
DX: R13.10 Dysphagia, unspecified (principal); Z53.8 Procedure and treatment not carried out for other reasons; R09.89 Other specified symptoms and signs involving the circulatory and respiratory systems

== ENCOUNTER 2024-11-17 12:46 | Day surgery (SDC) | payer MEDICARE, MEDICAID ==
[~2024-11-17] VITALS: Ht 156.2 cm; Wt 61.2 kg
[~2024-11-17 12:46] MED LIST changes: -BAYE325T12 PO; +BAYE325T2 PO; +LIDOCAINE 2% 100MG/5ML SDV (FOR ANES.) As Ordered ONE; +propofoL 200 MG/20 ML VIAL As Ordered ONE
[2024-11-17 15:29] VITALS: TEMP 97.3
[2024-11-17 16:15] VITALS: BP 140/67; O2SAT 92
== END 2024-11-17 16:16 | disposition home or self-care (01) ==
LOC: M OPP 12:46
PROVIDERS: ATTEND Internal Medicine Gastroenterology
DX: R13.10 Dysphagia, unspecified (principal); K22.2 Esophageal obstruction; Z88.5 Allergy status to narcotic agent; Z88.0 Allergy status to penicillin; Z79.899 Other long term (current) drug therapy; I25.2 Old myocardial infarction; G40.909 Epilepsy, unspecified, not intractable, without status epilepticus

== ENCOUNTER → 2025-01-15 | Outpatient (REF) | payer MEDICARE, MEDICAID ==
[~2025-01-15] MED LIST changes: -LIDOCAINE 2% 100MG/5ML SDV (FOR ANES.) As Ordered ONE; -propofoL 200 MG/20 ML VIAL As Ordered ONE
[2025-01-15 15:52] LABS: PHENOBARBITAL LEVEL 16.8 UG/ML (15.0-40.0)
[2025-01-15 15:53] LABS: PERCENT SATURATION 9.9 % (13.2-45.0)
[2025-01-15 15:55] LABS: FERRITIN 22.2 NG/ML (7.3-270.7)
[2025-01-15 15:58] LABS: FREE T3 3.1 PG/ML (2.3-4.2)
== END ==
LOC: M LAB REF 12:30
PROVIDERS: ATTEND Family Medicine
DX: G40.89 Other seizures (principal); M35.9 Systemic involvement of connective tissue, unspecified; I50.810 Right heart failure, unspecified; E07.9 Disorder of thyroid, unspecified; D50.9 Iron deficiency anemia, unspecified

== ENCOUNTER → 2025-05-27 | Outpatient (REF) | payer MEDICARE, MEDICAID ==
[~2025-05-27] MED LIST changes: -SUCR1ORA2 PO; +SUCR1ORA20 PO
== END ==
LOC: M LAB REF 14:16
PROVIDERS: ATTEND Family Medicine
DX: I27.20 Pulmonary hypertension, unspecified (principal)

== ENCOUNTER 2025-08-20 07:32 | Observation (INO) | payer MEDICARE, MEDICAID ==
[2025-08-20] VITALS (9 sets, daily range): BP systolic 120–166; BP diastolic 54–73; TEMP 97.9–99.7; O2SAT 87–96
[~2025-08-20] VITALS: Ht 154.9 cm; Wt 62.4 kg
[2025-08-20] MEDS: LR 1,000 ML IV SCH ×2 (08:15→10:30)
[2025-08-20] MEDS: SILDENAFIL CITRATE 20 MG TABLET PO SCH (09:00)
[2025-08-20] MEDS ORDERED: LIDOCAINE 2% 100 MG/5 ML SDV (FOR ANES.) As Ordered ONE (09:07)
[2025-08-20] MEDS ORDERED: KETAMINE INJ 500 MG/5 ML VIAL As Ordered ONE (09:11)
[2025-08-20] MEDS: PHENYLEPHRINE REG/STR 0.5% NASAL SPRAY 15 ML As Ordered ONE (09:28)
[2025-08-20] MEDS: OXYMETAZOLINE 0.05% NASAL SPRAY As Ordered ONE (09:51)
[2025-08-20] MEDS: CIPRODEX OTIC SUSP 7.5 ML As Ordered ONE (09:51)
[2025-08-20] MEDS ORDERED: ONDANSETRON 4MG 2ML VIAL IV PRN (10:30)
[2025-08-20] MEDS ORDERED: HYDROMORPHONE HCL 0.5 MG/0.5 ML SYRINGE IV PRN (10:30)
[2025-08-20] MEDS ORDERED: ACETAMINOPHEN 325 MG TAB PO PRN (12:50)
[2025-08-20] MEDS ORDERED: ALBUTEROL SULFATE 2.5 MG/0.5 ML INH CONCENTRATE NEB SOLN NEB PRN (12:50)
[2025-08-20 13:37] LABS: PLATELET COUNT, AUTOMATED 223 10^3/uL (150-450)
[2025-08-20 13:51] LABS: INR 1.06
[2025-08-20 13:58] LABS: CALCIUM LEVEL 8.4 MG/DL (8.3-10.6); CARBON DIOXIDE LEVEL 22.0 MMOL/L (20-31); CHLORIDE LEVEL 104.0 MMOL/L (98-107); CREATININE FOR GFR 0.91 MG/DL (0.55-1.30); GLOMERULAR FILTRATION RATE 62.6 (>32); POTASSIUM SERUM 4.4 MMOL/L (3.5-5.1); SODIUM LEVEL 134.0 MMOL/L (136-145)
[2025-08-20] MEDS ORDERED: REST0.05 OU (14:25)
[2025-08-20] MEDS ORDERED: FLUTISP NARES (14:25)
[2025-08-20] MEDS ORDERED: SODI88SP NARES (14:26)
[2025-08-20] MEDS ORDERED: HOME MED LIST COMPLETE! XX SCH (14:30)
[2025-08-20] MEDS ORDERED: TREPROSTINIL IH SCH (16:00)
[2025-08-20] MEDS ORDERED: TYVASO 0.6 MG/ML NEB SCH (17:00)
[2025-08-20] MEDS: IPRATROPIUM 0.5 MG/ALBUTEROL 2.5 MG INH SOL UD 3 ML NEB SCH (18:20)
[2025-08-20] MEDS: CIPRODEX OTIC SUSP 7.5 ML AU SCH (20:27)
[2025-08-20] MEDS ORDERED: CIPRODEX OTIC SUSP 7.5 ML AU SCH (21:00)
[2025-08-21 02:45] VITALS: BP 134/58; TEMP 98.8; O2SAT 91
[2025-08-21 04:16] VITALS: O2SAT 84; O2SAT 88
[2025-08-21 08:00] VITALS: BP 116/64; TEMP 98.8; O2SAT 89
[2025-08-21 08:30] LABS: PLATELET COUNT, AUTOMATED 208 10^3/uL (150-450)
[2025-08-21 08:54] LABS: ALT/SGPT < 9 U/L (7.0-40); AST/SGOT 14 U/L (<34); CALCIUM LEVEL 8.2 MG/DL (8.3-10.6); CARBON DIOXIDE LEVEL 21 MMOL/L (20-31); CHLORIDE LEVEL 106 MMOL/L (98-107); CREATININE FOR GFR 0.88 MG/DL (0.55-1.30); GLOMERULAR FILTRATION RATE 65.2 (>32); POTASSIUM SERUM 4.0 MMOL/L (3.5-5.1); SODIUM LEVEL 134 MMOL/L (136-145)
[2025-08-21] MEDS ORDERED: TADALAFIL PO SCH (09:00)
[2025-08-21] MEDS ORDERED: AMBRISENTAN PO SCH (09:00)
[2025-08-21] MEDS: TORSEMIDE 10 MG TABLET PO SCH (09:22)
[2025-08-21 09:27] VITALS: BP 116/64
[2025-08-21] MEDS: SPIRONOLACTONE 12.5MG PER 1/2 TABLET PO SCH (09:27)
[2025-08-21 12:00] VITALS: BP 118/57; TEMP 98.1; O2SAT 90
[2025-08-21] MEDS ORDERED: CIPR7.5D2 AU (13:05)
== END 2025-08-21 15:02 | disposition home or self-care (01) ==
LOC: M SDC 07:32 → M RR INP 07:33 → M MSPAV 13:26
PROVIDERS: ADMIT Internal Medicine; ATTEND Otolaryngology
DX: J96.20 Acute and chronic respiratory failure, unspecified whether with hypoxia or hypercapnia (principal); H92.03 Otalgia, bilateral; I25.10 Atherosclerotic heart disease of native coronary artery without angina pectoris; K44.9 Diaphragmatic hernia without obstruction or gangrene; M34.1 CR(E)ST syndrome; D64.9 Anemia, unspecified; Z86.718 Personal history of other venous thrombosis and embolism; Z79.899 Other long term (current) drug therapy; J45.909 Unspecified asthma, uncomplicated; G40.909 Epilepsy, unspecified, not intractable, without status epilepticus; K21.9 Gastro-esophageal reflux disease without esophagitis; N18.9 Chronic kidney disease, unspecified; Z79.2 Long term (current) use of antibiotics
CPT/HCPCS: 36415; 69436; 80048; 80053; 83880; 84145; 85027; 85610; 85730; 94640; G0378; G0379; J3010

== ENCOUNTER → 2025-09-28 | Outpatient (REF) | payer MEDICARE, MEDICAID ==
[~2025-09-28] MED LIST changes: +CIPR7.5D2 AU; +FLUTISP NARES; +REST0.05 OU; +SODI88SP7 NARES
[2025-09-28 19:11] LABS: IRON (FE) 29.0 UG/DL (50-170); PERCENT SATURATION 10.3 % (13.2-45.0)
== END ==
LOC: M LAB REF 18:13
PROVIDERS: ATTEND Family Medicine
DX: I50.810 Right heart failure, unspecified (principal); I44.7 Left bundle-branch block, unspecified; E07.9 Disorder of thyroid, unspecified; D50.9 Iron deficiency anemia, unspecified